=== PATIENT | male | born 1945 | race Caucasian/White ===

== ENCOUNTER → 2017-01-13 | Outpatient (CLI) | payer OTHER ==
[2015-01-04 10:04] VITALS: BP 148/78
[2017-01-13 10:20] LABS: BASOPHILS # (AUTO) 0.1 X10^3/uL (0.0-0.1); EOSINOPHILS # (AUTO) 0.4 x10^3/uL (0.0-0.2); HEMATOCRIT 42.3 % (42.0-54.0); HEMOGLOBIN 14.1 g/dL (13.5-18.0); LYMPHOCYTES # (AUTO) 1.3 X10^3/uL (1.3-2.9); MEAN CORPUSCULAR HEMOGLOBIN 25.3 pg (27.0-34.0); MEAN CORPUSCULAR HGB CONC 33.3 g/dL (33.0-35.0); MEAN CORPUSCULAR VOLUME 76.1 fL (80.0-100.0); MEAN PLATELET VOLUME 8.6 fL (7.4-11.0); MONOCYTES # (AUTO) 0.4 x10^3/uL (0.3-0.8); MONOCYTES % (AUTO) 6.4 % (0.0-13.0); NEUTROPHILS # (AUTO) 4.4 x10^3/uL (2.2-4.8); NEUTROPHILS % (AUTO) 66.6 % (42.0-75.0); PLATELET COUNT 166 X10^3/uL (150.0-450.0); RED BLOOD COUNT 5.55 X10^6/uL (4.7-6.0); RED CELL DISTRIBUTION WIDTH 14.3 % (11.6-16.5); WHITE BLOOD COUNT 6.6 X10^3/uL (3.6-10.0)
[2017-01-13 10:27] LABS: CREATININE,URINE 127.01 mg/dL (40-278); MICROALBUMIN,URINE 15.5 mg/L
[2017-01-13 10:33] LABS: HEMOGLOBIN A1C 7.8 % (4.5-6.2)
[2017-01-13 10:35] LABS: HYPOCHROMASIA SLIGHT; PLATELET MORPHOLOGY COMMENT NORMAL (NORMAL)
[2017-01-13 10:47] LABS: ALANINE AMINOTRANSFERASE 40 Units/L (12-78); ALBUMIN 3.9 g/dL (3.4-5.0); ALKALINE PHOSPHATASE 61 Units/L (46-116); ASPARTATE AMINO TRANSFERASE 26 Units/L (15-37); BLOOD UREA NITROGEN 20 mg/dL (7-18); CALCIUM 8.9 mg/dL (8.5-10.1); CARBON DIOXIDE 25.9 mmol/L (21-32); CHLORIDE 103 mmol/L (98-107); CHOL/HDL RATIO 2.5 (0.0-5.0); CHOLESTEROL 107 mg/dL (0-200); COR NA(FOR HYPERGLY) 143 mmol/L (136-145); GLUCOSE 182 mg/dL (65-99); HDL CHOLESTEROL 42 mg/dL (40-60); SODIUM 141 mmol/L (136-145); TOTAL PROTEIN 7.8 g/dL (6.4-8.2); TRIGLYCERIDES 124 mg/dL (0-150); URIC ACID 4.4 mg/dL (3.5-7.2); eGFR BLACK RACES > 60 (>60); eGFR NON BLACK RACES > 60 (>60)
[2017-01-13 12:08] LABS: TOTAL PSA 3.74 ng/mL (0.13-4.0)
== END ==
LOC: LAB 09:48
PROVIDERS: ATTEND Nurse Practitioner Family
DX: E11.9 Type 2 diabetes mellitus without complications (principal); E78.4 Other hyperlipidemia; M10.9 Gout, unspecified; Z87.898 Personal history of other specified conditions; R97.20 Elevated prostate specific antigen [PSA]
CPT/HCPCS: 36415; 80053; 80061; 82043; 83036; 84153; 84550; 85025

== ENCOUNTER → 2017-02-13 | Outpatient (CLI) | payer OTHER ==
[2015-01-04 10:04] VITALS: BP 148/78
== END ==
LOC: LAB 07:53
PROVIDERS: ATTEND Internal Medicine Gastroenterology
DX: K64.0 First degree hemorrhoids (principal); Z86.010 Personal history of colon polyps
CPT/HCPCS: 82270

== ENCOUNTER → 2017-08-27 | Outpatient (CLI) | payer OTHER ==
[2015-01-04 10:04] VITALS: BP 148/78
[2017-08-27 12:06] LABS: BASOPHILS % (AUTO) 0.9 % (0.2-1.0); EOSINOPHILS # (AUTO) 0.2 x10^3/uL (0.0-0.2); EOSINOPHILS % (AUTO) 4.1 % (0.9-2.9); HEMOGLOBIN 14.8 g/dL (13.5-18.0); LYMPHOCYTES # (AUTO) 1.2 X10^3/uL (1.3-2.9); LYMPHOCYTES % (AUTO) 24.8 % (21.0-51.0); MEAN CORPUSCULAR HEMOGLOBIN 25.5 pg (27.0-34.0); MEAN CORPUSCULAR HGB CONC 33.7 g/dL (33.0-35.0); MEAN CORPUSCULAR VOLUME 75.5 fL (80.0-100.0); MEAN PLATELET VOLUME 8.4 fL (7.4-11.0); MONOCYTES # (AUTO) 0.5 x10^3/uL (0.3-0.8); MONOCYTES % (AUTO) 9.5 % (0.0-13.0); NEUTROPHILS % (AUTO) 60.7 % (42.0-75.0); PLATELET COUNT 156 X10^3/uL (150.0-450.0); RED BLOOD COUNT 5.83 X10^6/uL (4.7-6.0); RED CELL DISTRIBUTION WIDTH 14.3 % (11.6-16.5); WHITE BLOOD COUNT 4.9 X10^3/uL (3.6-10.0)
[2017-08-27 12:16] LABS: ALANINE AMINOTRANSFERASE 73 Units/L (12-78); ALBUMIN 3.9 g/dL (3.4-5.0); ALKALINE PHOSPHATASE 66 Units/L (46-116); ASPARTATE AMINO TRANSFERASE 73 Units/L (15-37); BLOOD UREA NITROGEN 20 mg/dL (7-18); CALCIUM 9.4 mg/dL (8.5-10.1); CARBON DIOXIDE 24.9 mmol/L (21-32); CHLORIDE 105 mmol/L (98-107); CHOL/HDL RATIO 4.7 (0.0-5.0); CHOLESTEROL 192 mg/dL (0-200); COR NA(FOR HYPERGLY) 141 mmol/L (136-145); CREATININE 0.92 mg/dL (0.70-1.30); HDL CHOLESTEROL 41 mg/dL (40-60); SODIUM 139 mmol/L (136-145); TOTAL PROTEIN 7.6 g/dL (6.4-8.2); TRIGLYCERIDES 407 mg/dL (0-150); URIC ACID 6.2 mg/dL (3.5-7.2); eGFR BLACK RACES > 60 (>60); eGFR NON BLACK RACES > 60 (>60)
[2017-08-27 12:21] LABS: PLATELET MORPHOLOGY COMMENT NORMAL (NORMAL)
[2017-08-27 12:23] LABS: HEMOGLOBIN A1C 10.2 % (4.5-6.2)
[2017-08-27 12:27] LABS: CREATININE,URINE 116.91 mg/dL (40-278); MICROALBUMIN,URINE 24.6 mg/L
[2017-08-27 12:28] LABS: TOTAL PSA 4.12 ng/mL (0.13-4.0)
[2017-08-27 12:46] LABS: ERYTHROCYTE SEDIMENTATION RATE 2 MM/HOUR (0-15)
== END ==
LOC: LAB 11:20
PROVIDERS: ATTEND Nurse Practitioner Family
DX: E79.0 Hyperuricemia without signs of inflammatory arthritis and tophaceous disease (principal); E11.9 Type 2 diabetes mellitus without complications; I10 Essential (primary) hypertension; Z87.898 Personal history of other specified conditions; R97.20 Elevated prostate specific antigen [PSA]
CPT/HCPCS: 36415; 80053; 80061; 82043; 83036; 84153; 84550; 85025; 85652; 86140

== ENCOUNTER → 2017-09-01 | Outpatient (CLI) | payer OTHER ==
[2015-01-04 10:04] VITALS: BP 148/78
== END ==
LOC: LAB 08:20
PROVIDERS: ATTEND Nurse Practitioner Family
DX: E87.5 Hyperkalemia (principal)
CPT/HCPCS: 36415; 84132

== ENCOUNTER → 2017-09-10 | Outpatient (CLI) | payer OTHER ==
[2015-01-04 10:04] VITALS: BP 148/78
[2017-09-10 09:47] LABS: ALANINE AMINOTRANSFERASE 57 Units/L (12-78); ASPARTATE AMINO TRANSFERASE 31 Units/L (15-37)
== END ==
LOC: LAB 09:19
PROVIDERS: ATTEND Nurse Practitioner Family
DX: R74.0 Nonspecific elevation of levels of transaminase and lactic acid dehydrogenase [LDH] (principal)
CPT/HCPCS: 36415; 84450; 84460

== ENCOUNTER 2023-05-04 11:14 | Inpatient (IN) ==
[~2023-05-04 11:14] MED LIST: SUPRANE ONE
--- NOTE | 2023-05-04 11:25 | EKG ---
Test Reason : short of breath Blood Pressure : */* mmHG Vent. Rate : 116 BPM Atrial Rate : 116 BPM P-R Int : 156 ms QRS Dur : 86 ms QT Int : 310 ms P-R-T Axes : 29 9 62 degrees QTc Int : 430 ms Sinus tachycardia Possible Left atrial enlargement Possible Anterior infarct , age undetermined Abnormal ECG No previous ECGs available Confirmed by Lennox Martin ([id number]) on 05/05/2023 8:03:46 AM Referred By: Confirmed By: Lennox Martin
--- NOTE | 2023-05-04 11:31 | DR.GENAD ---
HPI Time Seen Time Seen by Provider: 05/04/23 11:30 HPI Comment HPI Comment: Patient is 77yr old male in er via ems with fever, rapid heart rate, right upper quadrant abdominal pain, weakness and sob. He was in this er 2days ago with right upper quadrant abdominal pain. Ct abdomen and pelvis was done with no acute findings. He saw pcp this morning and sent to er for further management. He is still having abdominal pain. He is having shaking chills. Denies dysuria, hematuria, vomiting, diarrhea or vomiting. He received one liter of normal saline prior to arrival to er. Complaint/Symptoms Chief Complaint Doctors Comments: Fever, hypotension, sob and rapid heart rate. PMH PMH Past Medical History: Diabetes, Dyslipidemia, GERD and Hypertension Past Surgical History: Yes Surgical History: Other Family History Family Medical History: Hypertension Social History Do you use any recreational Drugs:: No ROS Review of Systems Constitutional: Chills, Fever, Weakness, Fatigue and Loss of Appetite Eyes: No Symptoms Reported; negative Blurred Vision ENTM: No Symptoms Reported; negative Pulling on Ears or Nose Pain Respiratoy: Moist Cough and Short of Breath; negative Wheezing Cardiovascular: Palpitations; negative Chest Pain or Edema Gastrointestinal/Abdominal: Abdominal Pain; negative Diarrhea or Vomiting Genitourinary: No Symptoms Reported; negative Dysuria or Hematuria Neurological: Weakness; negative Headache or Dizziness Musculoskeletal: Muscle Pain Integumentary: Dryness Hematologic/Lymphatic: Easy Bruising Endocrine: Decreased Appetite; negative Increased Thirst Psychiatric: No Symptoms Reported All Other Systems: Reviewed and Negative PE Vital Signs Vitals: Vital Signs Temperature 100.3 F Pulse Rate 91 Pulse Rate 90 Pulse Rate 88 Pulse Rate 91 Pulse Rate 93 Pulse Rate 88 Pulse Rate 88 Pulse Rate 88 Pulse Rate 87 Pulse Rate 87 Pulse Rate 82 Pulse Rate 86 Pulse Rate 87 Pulse Rate 88 Pulse Rate 88 Pulse Rate 88 Pulse Rate 90 Pulse Rate 90 Pulse Rate 98 Pulse Rate 94 Pulse Rate 95 Pulse Rate 101 Pulse Rate 102 Pulse Rate 109 Pulse Rate 109 Pulse Rate 109 Pulse Rate 111 Pulse Rate 110 Pulse Rate 116 Respiratory Rate 32 Respiratory Rate 29 Respiratory Rate 31 Respiratory Rate 27 Respiratory Rate 30 Respiratory Rate 32 Respiratory Rate 33 Respiratory Rate 35 Respiratory Rate 25 Respiratory Rate 33 Respiratory Rate 31 Respiratory Rate 30 Respiratory Rate 33 Respiratory Rate 37 Respiratory Rate 28 Respiratory Rate 35 Respiratory Rate 37 Respiratory Rate 34 Respiratory Rate 33 Respiratory Rate 39 Respiratory Rate 60 Respiratory Rate 37 Respiratory Rate 62 Respiratory Rate 68 Respiratory Rate 78 Respiratory Rate 35 Respiratory Rate 33 Respiratory Rate 38 Respiratory Rate 20 Blood Pressure 96/57 Blood Pressure 95/52 Blood Pressure 100/57 Blood Pressure 91/52 Blood Pressure 89/60 Blood Pressure 69/50 Blood Pressure 71/50 Blood Pressure 67/49 Blood Pressure 67/49 Blood Pressure 63/45 Blood Pressure 60/42 Blood Pressure 59/43 Blood Pressure 69/44 Blood Pressure 71/47 Blood Pressure 84/54 Blood Pressure 94/55 Blood Pressure 95/55 Blood Pressure 123/56 Blood Pressure 93/56 O2 Sat by Pulse Oximetry 93 O2 Sat by Pulse Oximetry 93 O2 Sat by Pulse Oximetry 93 O2 Sat by Pulse Oximetry 93 O2 Sat by Pulse Oximetry 93 O2 Sat by Pulse Oximetry 94 O2 Sat by Pulse Oximetry 94 O2 Sat by Pulse Oximetry 94 O2 Sat by Pulse Oximetry 94 O2 Sat by Pulse Oximetry 93 O2 Sat by Pulse Oximetry 93 O2 Sat by Pulse Oximetry 93 O2 Sat by Pulse Oximetry 92 O2 Sat by Pulse Oximetry 89 O2 Sat by Pulse Oximetry 89 O2 Sat by Pulse Oximetry 91 O2 Sat by Pulse Oximetry 94 O2 Sat by Pulse Oximetry 93 O2 Sat by Pulse Oximetry 93 O2 Sat by Pulse Oximetry 92 O2 Sat by Pulse Oximetry 91 O2 Sat by Pulse Oximetry 94 O2 Sat by Pulse Oximetry 93 O2 Sat by Pulse Oximetry 93 O2 Sat by Pulse Oximetry 93 O2 Sat by Pulse Oximetry 95 O2 Sat by Pulse Oximetry 94 General Limitations: No Limitations General Appearance: Alert and In Distress Head Head Exam: Normal Inspection Eyes Eye exam: Normal Appearance; negative Scleral Icterus or Conjunctival Injection ENT ENT Exam: Normal Exam, Normal Oropharynx, Normal External Ear Exam and TM's Normal Bilaterally External Ear Exam: Normal External Inspection; negative Mastoid Tenderness TM/Canal Exam: Bilateral: Normal Nose Exam: Normal Nose Exam Mouth Exam: Normal Inspection Throat Exam: Normal Inspection; negative Tonsillar Erythema, Tonsillomegaly or Tonsillar Exudate Neck Neck Exam: Normal Inspection and Trachea Midline; negative Tenderness Chest Chest Inspection: Symmetric Chest Wall Rise; negative Tenderness Respiratory Respiratory Exam: Respiratory Distress; negative Accessory Muscle Use or Chest W all Tenderness Respiratory Exam: Bilateral: Rhonchi Cardiovascular Cardiovascular Exam: Tachycardia; negative Systolic Murmur or Diastolic Murmur Abdominal Exam Abdominal Exam: Normal Bowel Sounds, Soft and Tenderness Abdominal Tenderness: RUQ and Moderate Extremities Extremities Exam: Normal Inspection and Normal Capillary Refill Back Back Exam: Normal Inspection; negative (R) CVA Tenderness or (L) CVA Tenderness Neurologic Neurological Exam: Alert and Oriented X3 Psychiatric Psychiatric Exam: Normal Affect and Anxious Skin Skin Exam: Dry MDM Additional Information Additional Information Obtained From: Old Records, Family and PCP Differential Diagnosis Differential Diagnosis: Sepsis with shock, acute renal failure, bandemia, hypotension, bacteremia. COURSE Treatment Treatment: See orders done while patient was in er. patient was septic and resuscitated and managed according to protocol. He was given normal saline 4 liters iv bolus, zosyn 3.375gms ivpb and vancomycin 1.2gms ivpb.He was placed on levophed for persistent hypotension. He was admitted to icu for further management. Consultation Consultation Comments: Discussed patient with dr. [place]. He will admit patient. Education/Counseling Education/Counseling: Patient and Family Educated On: Treatment and Diagnosis Critical Care Notes Total Time (mins): 60 Critical Diagnosis: Sepsis Critical Interventions: Patients condition and management discussed with family and patient. Was at patients bedside, explaining update of his condition and management. Answered questions. he was fluid resuscitated and placed on lephofed. ROR Labs Reviewed Laboratory Results Reviewed?: Yes 05/07/23 04:10 05/07/23 04:10 Laboratory: 05/04/23 11:45 Urine,Catheterized Urine Culture - Final 05/04/23 12:35 Blood Blood Culture - Preliminary 05/04/23 11:55 Blood Blood Culture - Final Escherichia Coli WBC 14.0 X10^3/uL (3.6-10.0) H 05/04/23 11:55 RBC 5.45 X10^6/uL (4.7-6.0) 05/04/23 11:55 Hgb 13.6 g/dL (13.5-18.0) 05/04/23 11:55 Hct 41.3 % (42.0-54.0) L 05/04/23 11:55 MCV 75.7 fL (80.0-100.0) L 05/04/23 11:55 MCH 24.9 pg (27.0-34.0) L 05/04/23 11:55 MCHC 32.9 g/dL (33.0-35.0) L 05/04/23 11:55 RDW 15.0 % (11.6-16.5) 05/04/23 11:55 Plt Count 127 X10^3/uL (150.0-450.0) L 05/04/23 11:55 Plt Count Comment Decreased (ADEQUATE) 05/04/23 11:55 MPV 8.4 fL (7.4-11.0) 05/04/23 11:55 Neut % (Auto) 96.2 % (42.0-75.0) H 05/04/23 11:55 Lymph % (Auto) 1.2 % (21.0-51.0) L 05/04/23 11:55 [place] % (Auto) 2.6 % (0.0-13.0) 05/04/23 11:55 Eos % (Auto) 0.0 % (0.9-2.9) L 05/04/23 11:55 Baso % (Auto) 0 % (0.2-1.0) L 05/04/23 11:55 Neut # (Auto) 13.5 x10^3/uL (2.2-4.8) H 05/04/23 11:55 Lymph # (Auto) 0.2 X10^3/uL (1.3-2.9) L 05/04/23 11:55 [place] # (Auto) 0.4 x10^3/uL (0.3-0.8) 05/04/23 11:55 Eos # (Auto) 0.0 x10^3/uL (0.0-0.2) 05/04/23 11:55 Baso # (Auto) 0.0 X10^3/uL (0.0-0.1) 05/04/23 11:55 Absolute Nucleated RBC 0.0 /100WBC 05/04/23 11:55 Total Counted 100 05/04/23 11:55 Neutrophils % (Manual) 75 % (39-76) 05/04/23 11:55 Band Neutrophils % 15 % (0-10) H 05/04/23 11:55 Lymphocytes % (Manual) 4 % (13-43) L 05/04/23 11:55 Monocytes % (Manual) 4 % (4-9) 05/04/23 11:55 Metamyelocytes % 2 05/04/23 11:55 Toxic Granulation Noted 05/04/23 11:55 Plt Morphology Comment Normal (NORMAL) 05/04/23 11:55 RBC Morphology Normal (NORMAL) 05/04/23 11:55 Sodium 132 mmol/L (136-145) L 05/04/23 11:55 Corrected Sodium 134 mmol/L (136-145) L 05/04/23 11:55 Potassium 3.3 mmol/L (3.5-5.1) L 05/04/23 11:55 Chloride 94 mmol/L (98-107) L 05/04/23 11:55 Carbon Dioxide 24.7 mmol/L (21-32) 05/04/23 11:55 BUN 47 mg/dL (7-18) H 05/04/23 11:55 Creatinine 2.11 mg/dL (0.70-1.30) H 05/04/23 11:55 Est GFR (MDRD) Af Amer 39 (>60) L 05/04/23 11:55 Est GFR (MDRD) Non-Af 33 (>60) L 05/04/23 11:55 Glucose 176 mg/dL (65-99) H 05/04/23 11:55 Lactic Acid 1.9 mmol/L (0.4-2.0) 05/04/23 15:53 Calcium 8.2 mg/dL (8.5-10.1) L 05/04/23 11:55 Corrected Calcium 9.1 mg/dL (8.5-10.1) 05/04/23 11:55 Total Bilirubin 0.70 mg/dL (0.2-1.0) 05/04/23 11:55 AST 45 Units/L (15-37) H 05/04/23 11:55 ALT 41 Units/L (12-78) 05/04/23 11:55 Alkaline Phosphatase 184 Units/L (46-116) H 05/04/23 11:55 Creatine Kinase 66 Units/L (39-308) 05/04/23 11:55 Troponin I High Sens 39.8 ng/L (4.0-60.0) 05/04/23 11:55 B-Natriuretic Peptide 312 pg/mL (0-79) H 05/04/23 11:55 Total Protein 7.1 g/dL (6.4-8.2) 05/04/23 11:55 Albumin 2.9 g/dL (3.4-5.0) L 05/04/23 11:55 Globulin 4.2 g/dL (2.5-4.5) 05/04/23 11:55 Albumin/Globulin Ratio 0.7 Ratio (1.1-2.1) L 05/04/23 11:55 Amylase 23 Units/L (25-115) L 05/04/23 11:55 Lipase 77 Units/L (73-393) 05/04/23 11:55 Specimen Type Catherized urine 05/04/23 11:45 Urine Color Yellow (YELLOW) 05/04/23 11:45 Urine Appearance Hazy (CLEAR) 05/04/23 11:45 Urine pH 5.0 (5.0 - 8.0) 05/04/23 11:45 Ur Specific [place] 1.015 (1.000-1.030) 05/04/23 11:45 Urine Protein 2+ (NEGATIVE) 05/04/23 11:45 Urine Glucose (UA) 4+ (NEGATIVE) 05/04/23 11:45 Urine Ketones 1+ (NEGATIVE) 05/04/23 11:45 Urine Blood 5+ (NEGATIVE) 05/04/23 11:45 Urine Nitrite Negative (NEGATIVE) 05/04/23 11:45 Urine Bilirubin Negative (NEGATIVE) 05/04/23 11:45 Urine Urobilinogen Normal (NORMAL) 05/04/23 11:45 Ur Leukocyte Esterase Negative (NEGATIVE) 05/04/23 11:45 Urine RBC 10-20 /HPF (0-3) A 05/04/23 11:45 Urine WBC 0-2 /HPF (0-5) 05/04/23 11:45 Ur Squamous Epith Cells Rare /HPF (NEGATIVE) 05/04/23 11:45 Amorphous Sediment 1+ /HPF (NEGATIVE) 05/04/23 11:45 Urine Bacteria Trace /HPF (NEGATIVE) 05/04/23 11:45 Granular Casts Few /LPF (NEGATIVE) 05/04/23 11:45 Ur Culture Indicated? Yes/culture set up 05/04/23 11:45 SARS-CoV-2 (PCR) Negative (NEGATIVE) 05/04/23 16:22 Influenza Type A (PCR) Negative (NEGATIVE) 05/04/23 16:22 Influenza Type B (PCR) Negative (NEGATIVE) 05/04/23 16:22 RSV (PCR) Negative (NEGATIVE) 05/04/23 16:22 XRAY XRAY Interpreted by: Radiologist (Reports noted.) EKG Rate: 116 [place]: Normal Rhythm: ST Block: None Hypertrophy: LAE ST: Ant and Infarct (Age undetermined.) Opioid Opioid Risk Tool Age (Wolfgang box if 16-45): No Total: 0 Total Score Risk Category: Low Risk Copyright: Bahena LR predicting aberrant behaviors Discharge Plan Diagnosis Discharge Problem: Cholecystitis, Bandemia Sepsis Qualifiers: Sepsis type: sepsis due to unspecified organism Sepsis acute organ dysfunction status: with acute organ dysfunction Severe sepsis acute organ dysfunction type: acute renal failure Acute renal failure type: unspecified Severe sepsis shock status: with septic shock Qualified Code(s): A41.9 - Sepsis, unspecified [facility] Acute renal failure Qualifiers: Acute renal failure type: unspecified Qualified Code(s): N17.9 - Acute kidney failure, unspecified Hypotension Qualifiers: Hypotension type: unspecified hypotension type Qualified Code(s): I95.9 - Hypotension, unspecified Discharge Plan Patient Disposition: ADMITTED INPATIENT Condition: Stable
[2023-05-04] MEDS ORDERED: NS 1,000 ML IV 1,000 ML IV ONE ×2 (11:46→14:34)
[2023-05-04] MEDS ORDERED: OFIRMEV IV 1000 MG VIAL 1,000 MG/100 ML VIAL IV ONE ×2 (12:15→12:16)
[2023-05-04 12:23] LABS: BASOPHILS % (AUTO) 0 % (0.2-1.0); HEMATOCRIT 41.3 % (42.0-54.0); HEMOGLOBIN 13.6 g/dL (13.5-18.0); LYMPHOCYTES # (AUTO) 0.2 X10^3/uL (1.3-2.9); LYMPHOCYTES % (AUTO) 1.2 % (21.0-51.0); MEAN CORPUSCULAR HEMOGLOBIN 24.9 pg (27.0-34.0); MEAN CORPUSCULAR HGB CONC 32.9 g/dL (33.0-35.0); MEAN CORPUSCULAR VOLUME 75.7 fL (80.0-100.0); MEAN PLATELET VOLUME 8.4 fL (7.4-11.0); MONOCYTES # (AUTO) 0.4 x10^3/uL (0.3-0.8); MONOCYTES % (AUTO) 2.6 % (0.0-13.0); NEUTROPHILS # (AUTO) 13.5 x10^3/uL (2.2-4.8); NEUTROPHILS % (AUTO) 96.2 % (42.0-75.0); PLATELET COUNT 127 X10^3/uL (150.0-450.0); RED BLOOD COUNT 5.45 X10^6/uL (4.7-6.0)
[2023-05-04 12:24] LABS: BILIRUBIN,URINE NEGATIVE (NEGATIVE); BLOOD/HEMOGLOBIN,URINE 5+ (NEGATIVE); GLUCOSE, URINE 4+ (NEGATIVE); KETONES,URINE 1+ (NEGATIVE); LEUKOCYTE ESTERASE ,URINE NEGATIVE (NEGATIVE); NITRITES,URINE NEGATIVE (NEGATIVE); PROTEIN,URINE 2+ (NEGATIVE); UROBILINOGEN,URINE NORMAL (NORMAL)
[2023-05-04] MEDS ORDERED: NS 1,000 ML IV 1,000 ML ONE ×3 (12:25→15:23)
[2023-05-04 12:29] LABS: APPEARANCE,URINE HAZY (CLEAR); COLOR,URINE YELLOW (YELLOW)
[2023-05-04 12:37] LABS: ALBUMIN 2.9 g/dL (3.4-5.0); CALCIUM 8.2 mg/dL (8.5-10.1); CARBON DIOXIDE 24.7 mmol/L (21-32); COR CA(FOR HYPOALB) 9.1 mg/dL (8.5-10.1); CREATININE 2.11 mg/dL (0.70-1.30); POTASSIUM 3.3 mmol/L (3.5-5.1); TOTAL PROTEIN 7.1 g/dL (6.4-8.2)
[2023-05-04 12:38] LABS: BACTERIA,URINE TRACE /HPF (NEGATIVE); SQUAMOUS EPITHELIAL CELL,UR RARE /HPF (NEGATIVE)
[2023-05-04 12:39] LABS: GRANULAR CASTS,URINE FEW /LPF (NEGATIVE)
[2023-05-04 12:56] LABS: BAND NEUTROPHILS % 15 % (0-10); METAMYELOCYTES % 2; PLATELET MORPHOLOGY COMMENT NORMAL (NORMAL)
[2023-05-04 12:57] LABS: TOXIC GRANULATION NOTED
[2023-05-04] MEDS ORDERED: ZOSYN VIAL 3.375 GRAMS 3.375 G in NS 100 ML IV 100 ML IV ONE (13:05)
[2023-05-04] MEDS ORDERED: NS 100 ML IV 100 ML ONE (13:07)
[2023-05-04] MEDS ORDERED: ZOSYN VIAL 3.375 GRAMS IV ONE (13:07)
[2023-05-04] MEDS ORDERED: LEVOPHED INJ (VIAL) ONE (13:47)
[2023-05-04] MEDS: LEVOPHED 8 MG/250 ML IV *PREMIX 8 MG/250 ML PLAST..BAG IV PRN (13:55)
[2023-05-04] MEDS: D5W 250 ML IV 250 ML IV ONE (13:55)
--- NOTE | 2023-05-04 14:23 | US ---
HISTORYRight upper quadrant abdomen pain.STUDYGALL BLADDERCOMPARISONCT abdomen pelvis from 05/02/2023.TECHNIQUERight upper quadrant ultrasound.FINDINGSLiver appears normal in echotexture and echogenicity. The right lobe of liver measures 18 cm and the left 10.2 cm. The portal and hepatic veins are patent with appropriate flow directionality. The hepatic artery is patient. Gallbladder wall is thickened at 5-6 mm. No cholelithiasis seen or positive Morgan sign recorded. There is mild biliary sludge. Common duct normal at 2 mm. Right kidney measures 12.4 x 5.8 x 6.2 cm. No obvious renal mass, stone, or hydronephrosis. Obscured IVC and pancreas.IMPRESSIONGallbladder wall thickening is nonspecific and can be seen or acute or chronic cholecystitis, cardiac dysfunction, and liver dysfunction. No cholelithiasis identified.Electronically signed by: Johan Beckford (May 04, 2023 14:22:51)
[2023-05-04] MEDS: NS 1,000 ML IV 1,000 ML IV SCH ×2 (15:29→16:10)
[2023-05-04] MEDS ORDERED: VANCOMYCIN IV *PREMIX 1.25 G/250 ML BAG 1.25 G/250 ML PIGGYBACK IV ONE (15:55)
--- NOTE | 2023-05-04 15:57 | RAD ---
HISTORYSOB, FEVER, HIGH HEART RATESTUDYCHEST x-ray, 1 VIEWCOMPARISONNoneFINDINGSThere is poor inspiration with crowding of lung markings. Heart is probably normal in size. No pneumothorax, focal infiltrate, or pleural effusion is seen.IMPRESSIONPoor inspiration with crowding of lung markings. No acute abnormality is suggested.Electronically signed by: Ciro Dumont (May 04, 2023 15:47:44)
[2023-05-04] MEDS ORDERED: VANCOMYCIN IV *PREMIX 1.25 G/250 ML BAG 1.25 G/250 ML PIGGYBACK IV SCH (16:00)
[2023-05-04] MEDS ORDERED: CONSULT PHARMACY - POTASSIUM & MAGNESIUM XX SCH (17:00)
[2023-05-04] MEDS ORDERED: MICRO K EXTEN CAP 10 MEQ PO SCH (17:00)
[2023-05-04] MEDS ORDERED: NovoLIN R (or HumuLIN R) SUBCUT PRN (22:06)
[2023-05-04] MEDS: NovoLIN R (or HumuLIN R) SUBCUT PRN (22:15)
[2023-05-05] MEDS: NS 1,000 ML IV 1,000 ML IV SCH ×4 (00:20→22:25)
[2023-05-05] MEDS ORDERED: OFIRMEV IV 1000 MG VIAL 1,000 MG/100 ML VIAL IV ONE (00:38)
[2023-05-05] MEDS: OFIRMEV IV 1000 MG VIAL 1,000 MG/100 ML VIAL IV PRN ×2 (00:45→17:43)
[2023-05-05 05:06] LABS: BASOPHILS % (AUTO) 0.1 % (0.2-1.0); EOSINOPHILS % (AUTO) 0.2 % (0.9-2.9); HEMOGLOBIN 12.9 g/dL (13.5-18.0); LYMPHOCYTES # (AUTO) 0.1 X10^3/uL (1.3-2.9); LYMPHOCYTES % (AUTO) 1.3 % (21.0-51.0); MEAN CORPUSCULAR HEMOGLOBIN 25.3 pg (27.0-34.0); MEAN CORPUSCULAR VOLUME 74.6 fL (80.0-100.0); MEAN PLATELET VOLUME 8.4 fL (7.4-11.0); MONOCYTES # (AUTO) 0.1 x10^3/uL (0.3-0.8); MONOCYTES % (AUTO) 0.8 % (0.0-13.0); NEUTROPHILS # (AUTO) 9.6 x10^3/uL (2.2-4.8); NEUTROPHILS % (AUTO) 97.6 % (42.0-75.0); PLATELET COUNT 102 X10^3/uL (150.0-450.0); RED CELL DISTRIBUTION WIDTH 15.1 % (11.6-16.5); WHITE BLOOD COUNT 9.8 X10^3/uL (3.6-10.0)
[2023-05-05 05:13] LABS: ALANINE AMINOTRANSFERASE 44 Units/L (12-78); ALBUMIN 2.2 g/dL (3.4-5.0); ALKALINE PHOSPHATASE 291 Units/L (46-116); ASPARTATE AMINO TRANSFERASE 51 Units/L (15-37); BLOOD UREA NITROGEN 47 mg/dL (7-18); CALCIUM 7.2 mg/dL (8.5-10.1); CARBON DIOXIDE 22.8 mmol/L (21-32); CHLORIDE 102 mmol/L (98-107); COR CA(FOR HYPOALB) 8.6 mg/dL (8.5-10.1); CREATININE 1.58 mg/dL (0.70-1.30); GLUCOSE 97 mg/dL (65-99); SODIUM 137 mmol/L (136-145); TOTAL PROTEIN 5.8 g/dL (6.4-8.2); eGFR NON BLACK RACES 46 (>60)
[2023-05-05 05:25] LABS: POTASSIUM 2.8 mmol/L (3.5-5.1)
[2023-05-05 05:35] LABS: BAND NEUTROPHILS % 7 % (0-10); PLATELET MORPHOLOGY COMMENT NORMAL (NORMAL)
[2023-05-05 05:36] LABS: MICROCYTOSIS SLIGHT
[2023-05-05 05:37] LABS: OVALOCYTES SLIGHT
[2023-05-05] MEDS ORDERED: MAG-OX TAB PO SCH (06:00)
[2023-05-05] MEDS ORDERED: CONSULT PHARMACY - POTASSIUM & MAGNESIUM XX SCH (06:00)
[2023-05-05] MEDS ORDERED: K-DUR TAB 20 MEQ PO SCH (06:00)
[2023-05-05] MEDS: LEVOPHED 8 MG/250 ML IV *PREMIX 8 MG/250 ML PLAST..BAG IV PRN (06:12)
[2023-05-05] MEDS: K-RIDER 10 MEQ/NS 100 ML 10 MEQ/100 ML BAG IV SCH ×6 (08:16→17:34)
[2023-05-05] MEDS: MAGNESIUM SULFATE 1 GRAM/100 mL PREMIX 1 G/100 ML BAG IV SCH ×2 (08:16→10:41)
[2023-05-05 08:41] LABS: ABG BASE EXCESS -6.9 mmol/L (-2.0-2.0)
--- NOTE | 2023-05-05 08:42 | RAD ---
HISTORYShortness of breathSTUDYChest AP portableCOMPARISONNoneFINDINGSHeart is enlarged. No congestive heart failure is noted. Lungs are hypoinflated but free of acute infiltrates. No pleural effusions are identified. Bony thorax is unremarkable.IMPRESSIONCardiomegaly without congestive heart failureLungs hypoinflated but clearElectronically signed by: BONNY WEIR (May 05, 2023 08:40:39)
[2023-05-05 08:43] LABS: ABG ALLEN TEST POS; ABG HCO3 14.9 mmol/L (22-26)
[2023-05-05] MEDS: LOVENOX INJ 40 MG SYR SC SCH (10:41)
--- NOTE | 2023-05-05 13:08 | DR.H&P ---
H&P History & Physical for Day of: H&P Date: 05/05/23 Chief Complaint Chief Complaint: This is a pleasant 77-year-old white male I was called about earlier in the day for what appears to be sepsis and he is having right upper quadrant pain as well. He went to the [facility] emergency department a few days ago and did a CT of his abdomen and pelvis and a gallbladder ultrasound which shows a thickened gallbladder wall with or possibly without cholecystitis. We have consulted general surgery to look at him and see what he thinks. In the meantime, he has been started on Levophed in the [facility] emergency department today for hypotension and tachycardia. He has responded appropriately to the medication and he is also been started on IV Zosyn along with IV vancomycin. He also recently had CT scan and there is concern about possible metastatic prostate cancer to his hip bone. Allergies Allergies Allergy/AdvReac Type Severity Reaction Status Date / Time No Known Drug Allergies Allergy Unknown Verified 05/04/23 09:47 Past Medical History Past Medical History: Diabetes, Dyslipidemia, GERD and Hypertension Past Surgical History Surgical History: Other Family History Family Medical History: Coronary Artery Disease and Hypertension Social History Does patient currently use any type of tobacco product: No Have you used tobacco products in the last 12 months: No Type of Tobacco Use: None Does any household member use tobacco: No Alcohol Use: Rarely Drug Use: None Medications Home Medications: Home Medications Medication Instructions Recorded Confirmed Type amlodipine 10 mg-valsartan 320 mg 1 tab PO QDAY 30 days #30 tabs 02/03/23 05/04/23 History tablet aspirin 81 mg chewable tablet 81 mg PO QDAY 02/03/23 05/04/23 History omeprazole 40 mg capsule,delayed 40 mg PO Q OTHER DAY 05/02/23 05/04/23 History release tamsulosin 0.4 mg capsule 0.4 mg PO QDAY 05/02/23 05/04/23 History Labs 05/05/23 04:15 05/05/23 04:15 Labs: 05/04/23 11:55 Blood Blood Culture - Preliminary 05/04/23 12:35 Blood Blood Culture - Preliminary 05/04/23 11:45 Urine,Catheterized Urine Culture - Preliminary Laboratory WBC 9.8 X10^3/uL (3.6-10.0) 05/05/23 04:15 RBC 5.10 X10^6/uL (4.7-6.0) 05/05/23 04:15 Hgb 12.9 g/dL (13.5-18.0) L 05/05/23 04:15 Hct 38.0 % (42.0-54.0) L 05/05/23 04:15 MCV 74.6 fL (80.0-100.0) L 05/05/23 04:15 MCH 25.3 pg (27.0-34.0) L 05/05/23 04:15 MCHC 34.0 g/dL (33.0-35.0) 05/05/23 04:15 RDW 15.1 % (11.6-16.5) 05/05/23 04:15 Plt Count 102 X10^3/uL (150.0-450.0) L 05/05/23 04:15 Plt Count Comment Decreased (ADEQUATE) 05/05/23 04:15 MPV 8.4 fL (7.4-11.0) 05/05/23 04:15 Neut % (Auto) 97.6 % (42.0-75.0) H 05/05/23 04:15 Lymph % (Auto) 1.3 % (21.0-51.0) L 05/05/23 04:15 [place] % (Auto) 0.8 % (0.0-13.0) 05/05/23 04:15 Eos % (Auto) 0.2 % (0.9-2.9) L 05/05/23 04:15 Baso % (Auto) 0.1 % (0.2-1.0) L 05/05/23 04:15 Neut # (Auto) 9.6 x10^3/uL (2.2-4.8) H 05/05/23 04:15 Lymph # (Auto) 0.1 X10^3/uL (1.3-2.9) L 05/05/23 04:15 [place] # (Auto) 0.1 x10^3/uL (0.3-0.8) L 05/05/23 04:15 Eos # (Auto) 0.0 x10^3/uL (0.0-0.2) 05/05/23 04:15 Baso # (Auto) 0.0 X10^3/uL (0.0-0.1) 05/05/23 04:15 Absolute Nucleated RBC 0.1 /100WBC 05/05/23 04:15 Total Counted 100 05/05/23 04:15 Neutrophils % (Manual) 89 % (39-76) H 05/05/23 04:15 Band Neutrophils % 7 % (0-10) 05/05/23 04:15 Lymphocytes % (Manual) 4 % (13-43) L 05/05/23 04:15 Monocytes % (Manual) 4 % (4-9) 05/04/23 11:55 Metamyelocytes % 2 05/04/23 11:55 Toxic Granulation Noted 05/04/23 11:55 Plt Morphology Comment Normal (NORMAL) 05/05/23 04:15 RBC Morphology Abnormal (NORMAL) 05/05/23 04:15 Microcytosis Slight A 05/05/23 04:15 Ovalocytes Slight A 05/05/23 04:15 PT 16.9 SECONDS (11.8-14.3) 05/04/23 17:25 INR Target Range - 05/04/23 17:25 INR 1.40 (0.8-1.3) H 05/04/23 17:25 APTT 41.3 SECONDS (22.9-36.5) H 05/04/23 17:25 PTT Comment - 05/04/23 17:25 Fibrinogen 869 mg/dL (239-489) H 05/04/23 17:25 Sample Site Rr 05/05/23 08:36 ABG pH 7.460 (7.35-7.45) H 05/05/23 08:36 ABG pCO2 21.0 mmHg (35.0-45.0) L 05/05/23 08:36 ABG pO2 93.0 mmHg (80.0-100.0) 05/05/23 08:36 ABG HCO3 14.9 mmol/L (22-26) L* 05/05/23 08:36 ABG O2 Saturation 98.0 % (90-100) 05/05/23 08:36 ABG Base Excess -6.9 mmol/L (-2.0-2.0) L 05/05/23 08:36 Trevon Test Pos 05/05/23 08:36 A-a Gradient 130.0 mmHg 05/05/23 08:36 FiO2 35.0 05/05/23 08:36 Blood Gas Comments Pt luana well cdn 05/05/23 08:36 Sodium 137 mmol/L (136-145) 05/05/23 04:15 Corrected Sodium TNP 05/05/23 04:15 Potassium 2.8 mmol/L (3.5-5.1) L* 05/05/23 04:15 Chloride 102 mmol/L (98-107) 05/05/23 04:15 Carbon Dioxide 22.8 mmol/L (21-32) 05/05/23 04:15 BUN 47 mg/dL (7-18) H 05/05/23 04:15 Creatinine 1.58 mg/dL (0.70-1.30) H 05/05/23 04:15 Est GFR (MDRD) Af Amer 55 (>60) L 05/05/23 04:15 Est GFR (MDRD) Non-Af 46 (>60) L 05/05/23 04:15 Glucose 97 mg/dL (65-99) 05/05/23 04:15 POC Glucose (mg/dL) 135 mg/dL (65-99) H 05/05/23 11:39 Lactic Acid 1.9 mmol/L (0.4-2.0) 05/04/23 15:53 Calcium 7.2 mg/dL (8.5-10.1) L 05/05/23 04:15 Corrected Calcium 8.6 mg/dL (8.5-10.1) 05/05/23 04:15 Magnesium 1.6 mg/dL (2.0-2.9) L 05/05/23 04:15 Total Bilirubin 0.50 mg/dL (0.2-1.0) 05/05/23 04:15 AST 51 Units/L (15-37) H 05/05/23 04:15 ALT 44 Units/L (12-78) 05/05/23 04:15 Alkaline Phosphatase 291 Units/L (46-116) H 05/05/23 04:15 Creatine Kinase 66 Units/L (39-308) 05/04/23 11:55 Troponin I High Sens 39.8 ng/L (4.0-60.0) 05/04/23 11:55 B-Natriuretic Peptide 159 pg/mL (0-79) H 05/05/23 04:15 Total Protein 5.8 g/dL (6.4-8.2) L 05/05/23 04:15 Albumin 2.2 g/dL (3.4-5.0) L 05/05/23 04:15 Globulin 3.6 g/dL (2.5-4.5) 05/05/23 04:15 Albumin/Globulin Ratio 0.6 Ratio (1.1-2.1) L 05/05/23 04:15 Amylase 23 Units/L (25-115) L 05/04/23 11:55 Lipase 77 Units/L (73-393) 05/04/23 11:55 Specimen Type Catherized urine 05/04/23 11:45 Urine Color Yellow (YELLOW) 05/04/23 11:45 Urine Appearance Hazy (CLEAR) 05/04/23 11:45 Urine pH 5.0 (5.0 - 8.0) 05/04/23 11:45 Ur Specific [place] 1.015 (1.000-1.030) 05/04/23 11:45 Urine Protein 2+ (NEGATIVE) 05/04/23 11:45 Urine Glucose (UA) 4+ (NEGATIVE) 05/04/23 11:45 Urine Ketones 1+ (NEGATIVE) 05/04/23 11:45 Urine Blood 5+ (NEGATIVE) 05/04/23 11:45 Urine Nitrite Negative (NEGATIVE) 05/04/23 11:45 Urine Bilirubin Negative (NEGATIVE) 05/04/23 11:45 Urine Urobilinogen Normal (NORMAL) 05/04/23 11:45 Ur Leukocyte Esterase Negative (NEGATIVE) 05/04/23 11:45 Urine RBC 10-20 /HPF (0-3) A 05/04/23 11:45 Urine WBC 0-2 /HPF (0-5) 05/04/23 11:45 Ur Squamous Epith Cells Rare /HPF (NEGATIVE) 05/04/23 11:45 Amorphous Sediment 1+ /HPF (NEGATIVE) 05/04/23 11:45 Urine Bacteria Trace /HPF (NEGATIVE) 05/04/23 11:45 Granular Casts Few /LPF (NEGATIVE) 05/04/23 11:45 Ur Culture Indicated? Yes/culture set up 05/04/23 11:45 SARS-CoV-2 (PCR) Negative (NEGATIVE) 05/04/23 16:22 Influenza Type A (PCR) Negative (NEGATIVE) 05/04/23 16:22 Influenza Type B (PCR) Negative (NEGATIVE) 05/04/23 16:22 RSV (PCR) Negative (NEGATIVE) 05/04/23 16:22 Review of Systems Constitutional: Fever, Chills, Sweats, Weakness and Malaise Eyes: No Symptoms Reported ENT: No Symptoms Reported Respiratory: Cough and Shortness of Breath Cardiovascular: Orthopnea Gastrointestinal: Abdominal Pain Genitourinary: No Symptoms Reported Musculoskeletal: No Symptoms Reported Skin: No Symptoms Reported Neurological: No Symptoms Reported Physical Exam Vital Signs: Vital Signs Temperature 99.5 F Pulse Rate 92 Pulse Rate 89 Pulse Rate 95 Pulse Rate 95 Pulse Rate 97 Pulse Rate 110 Pulse Rate 102 Pulse Rate 112 Pulse Rate 105 Pulse Rate 111 Pulse Rate 107 Pulse Rate 105 Pulse Rate 102 Pulse Rate 104 Respiratory Rate 36 Respiratory Rate 31 Respiratory Rate 32 Respiratory Rate 35 Respiratory Rate 39 Respiratory Rate 38 Respiratory Rate 33 Respiratory Rate 41 Respiratory Rate 36 Respiratory Rate 37 Respiratory Rate 32 Respiratory Rate 37 Respiratory Rate 28 Respiratory Rate 30 Blood Pressure 115/63 Blood Pressure 108/60 Blood Pressure 117/63 Blood Pressure 111/64 Blood Pressure 114/70 Blood Pressure 104/69 Blood Pressure 109/64 Blood Pressure 121/75 Blood Pressure 124/81 Blood Pressure 124/81 Blood Pressure 117/72 Blood Pressure 97/64 Blood Pressure 108/58 Blood Pressure 125/68 O2 Sat by Pulse Oximetry 94 O2 Sat by Pulse Oximetry 93 O2 Sat by Pulse Oximetry 93 O2 Sat by Pulse Oximetry 98 O2 Sat by Pulse Oximetry 97 O2 Sat by Pulse Oximetry 94 O2 Sat by Pulse Oximetry 94 O2 Sat by Pulse Oximetry 95 O2 Sat by Pulse Oximetry 95 O2 Sat by Pulse Oximetry 92 O2 Sat by Pulse Oximetry 94 O2 Sat by Pulse Oximetry 92 O2 Sat by Pulse Oximetry 93 O2 Sat by Pulse Oximetry 93 Oriented: Normal, Time, Person and Place Eyes: Normal Ear: Normal Nose: Normal Throat: Normal Respiratory: Clear Throughout Cardiovascular: Normal : Normal Auscultation: Bowel Sounds: Normal Palpation: Normal Tenderness: RUQ Skin: Normal Musculoskeletal: Normal Psychiatric: Normal Mood Description: Calm Affect: Normal Speech Pattern: Clear and Appropriate Assessment/Plan (1) Acute renal failure: Status: Acute Plan: IV hydration. (2) Cholecystitis: Status: Acute Plan: Following up with general surgery consultation (3) Hypotension: Status: Acute Plan: Continue Levophed but wean off as tolerated. (4) Tachycardia: Status: None Plan: IV hydration to help bring her blood pressure. (5) Enlarged prostate: Status: Acute Plan: Check MRI of abdomen pelvis (6) Insulin-requiring or dependent type II diabetes mellitus: Status: Acute Plan: Slight scale regular insulin per protocol. (7) Benign prostatic hyperplasia: Qualifiers: Lower urinary tract symptom detail: nocturia Status: None Plan: Check PSA in the morning. (8) Sepsis: Status: Acute Plan: Follow-up blood cultures, continue IV Zosyn and continue IV vancomycin.
[2023-05-05] MEDS ORDERED: NS 100 ML IV 100 ML ONE (14:09)
[2023-05-05] MEDS ORDERED: MULTIHANCE INJ VIAL ONE (14:09)
[2023-05-05] MEDS ORDERED: VANCOMYCIN IV *PREMIX 1.25 G/250 ML BAG 1.25 G/250 ML PIGGYBACK IV SCH (16:00)
[2023-05-05] MEDS: NovoLIN R (or HumuLIN R) SUBCUT PRN (16:51)
[2023-05-05] MEDS ORDERED: RESTORIL CAP 30 MG PO PRN (17:15)
[2023-05-05] MEDS ORDERED: K-RIDER 10 MEQ/NS 100 ML 10 MEQ/100 ML BAG IV ONE (17:29)
[2023-05-05] MEDS: ULTRAM PO PRN (19:45)
[2023-05-05] MEDS ORDERED: SNACK - Diabetic Appropriate PO SCH (20:00)
[2023-05-05] MEDS: SNACK - Diabetic Appropriate PO SCH (20:10)
[2023-05-05] MEDS: RESTORIL CAP 15 MG PO PRN (20:29)
[2023-05-06 04:45] LABS: ABG ALLEN TEST POS; ABG HCO3 19.5 mmol/L (22-26)
[2023-05-06 05:14] LABS: BASOPHILS % (AUTO) 0.1 % (0.2-1.0); EOSINOPHILS # (AUTO) 0.1 x10^3/uL (0.0-0.2); HEMATOCRIT 35.2 % (42.0-54.0); HEMOGLOBIN 11.8 g/dL (13.5-18.0); LYMPHOCYTES # (AUTO) 0.4 X10^3/uL (1.3-2.9); LYMPHOCYTES % (AUTO) 3.2 % (21.0-51.0); MEAN CORPUSCULAR HGB CONC 33.6 g/dL (33.0-35.0); MEAN CORPUSCULAR VOLUME 74.4 fL (80.0-100.0); MEAN PLATELET VOLUME 8.7 fL (7.4-11.0); MONOCYTES # (AUTO) 0.7 x10^3/uL (0.3-0.8); MONOCYTES % (AUTO) 5.4 % (0.0-13.0); NEUTROPHILS % (AUTO) 90.3 % (42.0-75.0); PLATELET COUNT 60 X10^3/uL (150.0-450.0); RED BLOOD COUNT 4.73 X10^6/uL (4.7-6.0); RED CELL DISTRIBUTION WIDTH 15.7 % (11.6-16.5); WHITE BLOOD COUNT 12.2 X10^3/uL (3.6-10.0)
[2023-05-06 05:19] LABS: ALANINE AMINOTRANSFERASE 38 Units/L (12-78); ALBUMIN 1.8 g/dL (3.4-5.0); ALKALINE PHOSPHATASE 121 Units/L (46-116); ASPARTATE AMINO TRANSFERASE 33 Units/L (15-37); BLOOD UREA NITROGEN 32 mg/dL (7-18); CALCIUM 7.2 mg/dL (8.5-10.1); CARBON DIOXIDE 22.5 mmol/L (21-32); CHLORIDE 106 mmol/L (98-107); COR NA(FOR HYPERGLY) 139 mmol/L (136-145); GLUCOSE 129 mg/dL (65-99); POTASSIUM 3.4 mmol/L (3.5-5.1); SODIUM 138 mmol/L (136-145); TOTAL PROTEIN 5.4 g/dL (6.4-8.2); eGFR NON BLACK RACES > 60 (>60)
[2023-05-06 05:25] LABS: TOTAL PSA 38.28 ng/mL (0.13-4.0)
[2023-05-06 05:56] LABS: BAND NEUTROPHILS % 3 % (0-10); PLATELET MORPHOLOGY COMMENT NORMAL (NORMAL)
[2023-05-06 05:57] LABS: MICROCYTOSIS SLIGHT; OVALOCYTES SLIGHT
[2023-05-06] MEDS ORDERED: CONSULT PHARMACY - POTASSIUM & MAGNESIUM XX SCH (06:00)
--- NOTE | 2023-05-06 07:44 | PCM.PROG ---
Progress Note Progress Note for Day of Date of Exam: 05/05/23 Subjective Subjective: Patient is alert and awake and is feeling a little better this morning. They are weaning him down on the Levophed however his respirations are up in the 30s this point. Chest x-ray showed no acute processes going on. He is currently on a B mass with satting in the 90s. Will continue to wean down his O2 as tolerated and Levophed as tolerated by his blood pressure. Continue IV Zosyn and vancomycin. General surgeon has ordered a HIDA scan for his gallbladder however he is not currently stable enough to go to [facility] in [place] to have it done. Will see how he does next day his CV stable enough to have it done. In the meantime we will plan to order an MRI of his abdomen and pelvis to also look at what looks like to be metastatic prostate cancer. Past Medical Family Social History Allergies: Allergies No Known Drug Allergies Allergy (Unknown, Verified 05/04/23 09:47) Onset Date: 09/10/2012 Review of Systems ROS: No change since H&P Vital Signs and I&O's Vital Signs: Vital Signs Temperature 98.4 F Pulse Rate 83 Pulse Rate 80 Pulse Rate 85 Pulse Rate 86 Pulse Rate 87 Pulse Rate 90 Pulse Rate 93 Respiratory Rate 22 Respiratory Rate 29 Respiratory Rate 19 Respiratory Rate 18 Respiratory Rate 20 Respiratory Rate 29 Respiratory Rate 24 Blood Pressure 107/60 Blood Pressure 115/62 Blood Pressure 111/64 Blood Pressure 107/59 Blood Pressure 109/61 Blood Pressure 111/60 Blood Pressure 113/63 O2 Sat by Pulse Oximetry 95 O2 Sat by Pulse Oximetry 94 O2 Sat by Pulse Oximetry 95 O2 Sat by Pulse Oximetry 95 O2 Sat by Pulse Oximetry 95 O2 Sat by Pulse Oximetry 95 O2 Sat by Pulse Oximetry 93 Intake and Output: Intake & Output 05/03/23 05/04/23 05/05/23 05/06/23 11:59 11:59 11:59 11:59 Intake Total 5706 / 5937 4611 / 4611 Output Total 2099 / 2099 2950 / 2950 Balance 3606 / 3837 1661 / 1661 Physical Exam Oriented: Normal, Time, Person and Place Eyes: Normal Ear: Normal Nose: Normal Throat: Normal Respiratory: Normal Cardiovascular: Normal : Normal Auscultation: Bowel Sounds: Normal Tenderness: RUQ Skin: Normal Musculoskeletal: Normal Psychiatric: Normal Mood Description: Calm Affect: Normal Speech Pattern: Clear and Appropriate Laboratory and Diagnostics 05/06/23 04:10 05/06/23 04:10 Labs: 05/04/23 11:45 Urine,Catheterized Urine Culture - Final 05/04/23 12:35 Blood Blood Culture - Preliminary 05/04/23 11:55 Blood Blood Culture - Final Escherichia Coli Laboratory WBC 12.2 X10^3/uL (3.6-10.0) H 05/06/23 04:10 RBC 4.73 X10^6/uL (4.7-6.0) 05/06/23 04:10 Hgb 11.8 g/dL (13.5-18.0) L 05/06/23 04:10 Hct 35.2 % (42.0-54.0) L 05/06/23 04:10 MCV 74.4 fL (80.0-100.0) L 05/06/23 04:10 MCH 25.0 pg (27.0-34.0) L 05/06/23 04:10 MCHC 33.6 g/dL (33.0-35.0) 05/06/23 04:10 RDW 15.7 % (11.6-16.5) 05/06/23 04:10 Plt Count 60 X10^3/uL (150.0-450.0) L 05/06/23 04:10 Plt Count Comment Decreased (ADEQUATE) 05/06/23 04:10 MPV 8.7 fL (7.4-11.0) 05/06/23 04:10 Neut % (Auto) 90.3 % (42.0-75.0) H 05/06/23 04:10 Lymph % (Auto) 3.2 % (21.0-51.0) L 05/06/23 04:10 Mineral % (Auto) 5.4 % (0.0-13.0) 05/06/23 04:10 Eos % (Auto) 1.0 % (0.9-2.9) 05/06/23 04:10 Baso % (Auto) 0.1 % (0.2-1.0) L 05/06/23 04:10 Neut # (Auto) 11.0 x10^3/uL (2.2-4.8) H 05/06/23 04:10 Lymph # (Auto) 0.4 X10^3/uL (1.3-2.9) L 05/06/23 04:10 Mineral # (Auto) 0.7 x10^3/uL (0.3-0.8) 05/06/23 04:10 Eos # (Auto) 0.1 x10^3/uL (0.0-0.2) 05/06/23 04:10 Baso # (Auto) 0.0 X10^3/uL (0.0-0.1) 05/06/23 04:10 Absolute Nucleated RBC 0.1 /100WBC 05/06/23 04:10 Total Counted 100 05/06/23 04:10 Neutrophils % (Manual) 85 % (39-76) H 05/06/23 04:10 Band Neutrophils % 3 % (0-10) 05/06/23 04:10 Lymphocytes % (Manual) 5 % (13-43) L 05/06/23 04:10 Monocytes % (Manual) 7 % (4-9) 05/06/23 04:10 Metamyelocytes % 2 05/04/23 11:55 Toxic Granulation Noted 05/04/23 11:55 Plt Morphology Comment Normal (NORMAL) 05/06/23 04:10 RBC Morphology Abnormal (NORMAL) 05/06/23 04:10 Microcytosis Slight A 05/06/23 04:10 Ovalocytes Slight A 05/06/23 04:10 PT 16.9 SECONDS (11.8-14.3) 05/04/23 17:25 INR Target Range - 05/04/23 17:25 INR 1.40 (0.8-1.3) H 05/04/23 17:25 APTT 41.3 SECONDS (22.9-36.5) H 05/04/23 17:25 PTT Comment - 05/04/23 17:25 Fibrinogen 869 mg/dL (239-489) H 05/04/23 17:25 Sample Site Lr 05/06/23 04:39 ABG pH 7.420 (7.35-7.45) 05/06/23 04:39 ABG pCO2 30.0 mmHg (35.0-45.0) L 05/06/23 04:39 ABG pO2 77.0 mmHg (80.0-100.0) L 05/06/23 04:39 ABG HCO3 19.5 mmol/L (22-26) L 05/06/23 04:39 ABG O2 Saturation 95.0 % (90-100) 05/06/23 04:39 ABG Base Excess -4.0 mmol/L (-2.0-2.0) L 05/06/23 04:39 Trevon Test Pos 05/06/23 04:39 A-a Gradient 114.0 mmHg 05/06/23 04:39 FiO2 32.0 05/06/23 04:39 Blood Gas Comments Sagar well ae 05/06/23 04:39 Sodium 138 mmol/L (136-145) 05/06/23 04:10 Corrected Sodium 139 mmol/L (136-145) 05/06/23 04:10 Potassium 3.4 mmol/L (3.5-5.1) L 05/06/23 04:10 Chloride 106 mmol/L (98-107) 05/06/23 04:10 Carbon Dioxide 22.5 mmol/L (21-32) 05/06/23 04:10 BUN 32 mg/dL (7-18) H 05/06/23 04:10 Creatinine 0.90 mg/dL (0.70-1.30) 05/06/23 04:10 Est GFR (MDRD) Af Amer > 60 (>60) 05/06/23 04:10 Est GFR (MDRD) Non-Af > 60 (>60) 05/06/23 04:10 Glucose 129 mg/dL (65-99) H 05/06/23 04:10 POC Glucose (mg/dL) 93 mg/dL (65-99) 05/06/23 05:38 Lactic Acid 1.9 mmol/L (0.4-2.0) 05/04/23 15:53 Calcium 7.2 mg/dL (8.5-10.1) L 05/06/23 04:10 Corrected Calcium 9.0 mg/dL (8.5-10.1) 05/06/23 04:10 Magnesium 2.4 mg/dL (2.0-2.9) 05/06/23 04:10 Total Bilirubin 0.40 mg/dL (0.2-1.0) 05/06/23 04:10 AST 33 Units/L (15-37) 05/06/23 04:10 ALT 38 Units/L (12-78) 05/06/23 04:10 Alkaline Phosphatase 121 Units/L (46-116) H 05/06/23 04:10 Creatine Kinase 66 Units/L (39-308) 05/04/23 11:55 Troponin I High Sens 39.8 ng/L (4.0-60.0) 05/04/23 11:55 B-Natriuretic Peptide 169 pg/mL (0-79) H 05/06/23 04:10 Total Protein 5.4 g/dL (6.4-8.2) L 05/06/23 04:10 Albumin 1.8 g/dL (3.4-5.0) L 05/06/23 04:10 Globulin 3.6 g/dL (2.5-4.5) 05/06/23 04:10 Albumin/Globulin Ratio 0.5 Ratio (1.1-2.1) L 05/06/23 04:10 Amylase 23 Units/L (25-115) L 05/04/23 11:55 Lipase 77 Units/L (73-393) 05/04/23 11:55 Total PSA 38.28 ng/mL (0.13-4.0) H 05/06/23 04:10 Specimen Type Catherized urine 05/04/23 11:45 Urine Color Yellow (YELLOW) 05/04/23 11:45 Urine Appearance Hazy (CLEAR) 05/04/23 11:45 Urine pH 5.0 (5.0 - 8.0) 05/04/23 11:45 Ur Specific [place] 1.015 (1.000-1.030) 05/04/23 11:45 Urine Protein 2+ (NEGATIVE) 05/04/23 11:45 Urine Glucose (UA) 4+ (NEGATIVE) 05/04/23 11:45 Urine Ketones 1+ (NEGATIVE) 05/04/23 11:45 Urine Blood 5+ (NEGATIVE) 05/04/23 11:45 Urine Nitrite Negative (NEGATIVE) 05/04/23 11:45 Urine Bilirubin Negative (NEGATIVE) 05/04/23 11:45 Urine Urobilinogen Normal (NORMAL) 05/04/23 11:45 Ur Leukocyte Esterase Negative (NEGATIVE) 05/04/23 11:45 Urine RBC 10-20 /HPF (0-3) A 05/04/23 11:45 Urine WBC 0-2 /HPF (0-5) 05/04/23 11:45 Ur Squamous Epith Cells Rare /HPF (NEGATIVE) 05/04/23 11:45 Amorphous Sediment 1+ /HPF (NEGATIVE) 05/04/23 11:45 Urine Bacteria Trace /HPF (NEGATIVE) 05/04/23 11:45 Granular Casts Few /LPF (NEGATIVE) 05/04/23 11:45 Ur Culture Indicated? Yes/culture set up 05/04/23 11:45 SARS-CoV-2 (PCR) Negative (NEGATIVE) 05/04/23 16:22 Influenza Type A (PCR) Negative (NEGATIVE) 05/04/23 16:22 Influenza Type B (PCR) Negative (NEGATIVE) 05/04/23 16:22 RSV (PCR) Negative (NEGATIVE) 05/04/23 16:22 Plan (1) Acute renal failure: Status: Acute Narrative Support Text: Improved Plan: IV hydration. (2) Cholecystitis: Status: Acute Narrative Support Text: Plan on getting HIDA scan. Plan: Following up with general surgery consultation (3) Hypotension: Status: Acute Narrative Support Text: Improving. Plan: Continue Levophed but wean off as tolerated. (4) Tachycardia: Status: None Plan: IV hydration to help bring her blood pressure. (5) Enlarged prostate: Status: Acute Plan: Check MRI of abdomen pelvis (6) Insulin-requiring or dependent type II diabetes mellitus: Status: Acute Plan: Slight scale regular insulin per protocol. (7) Benign prostatic hyperplasia: Status: None Qualifiers: Lower urinary tract symptom detail: nocturia Plan: Check PSA in the morning. (8) Sepsis: Status: Acute Plan: Follow-up blood cultures, continue IV Zosyn and continue IV vancomycin.
[2023-05-06] MEDS: NS 1,000 ML IV 1,000 ML IV SCH ×3 (08:07→22:11)
[2023-05-06] MEDS ORDERED: K-RIDER 10 MEQ/NS 100 ML 10 MEQ/100 ML BAG IV SCH (09:00)
[2023-05-06] MEDS ORDERED: K-DUR TAB 20 MEQ PO SCH (09:00)
[2023-05-06] MEDS: FORTAZ or TAZICEF VIAL INJ 1 G in NS 100 ML IV 100 ML IV SCH ×3 (09:22→22:10)
[2023-05-06] MEDS: CIPRO IV 400 MG PREMIX* 400 MG/200 ML IV.SOLN. IV SCH ×2 (09:22→20:25)
--- NOTE | 2023-05-06 15:58 | MRI ---
PELVIS W W/O CONIndication: "Enlarged prostate"Technique: Multisequence, multiplanar MR images of the prostate were obtained with and without IV contrast.Comparison: None availableFindings: Several sequences are degraded by patient motion artifact.Accounting for this, the prostate gland is enlarged and measures 7.2 x 5.1 x 5.2 cm in transverse by AP by CC dimension. There is prominence and heterogeneous signal of the transitional zone of the prostate gland, compatible with changes of BPH.Accounting for limitations from motion artifact, no discrete T2 hypointense diffusion restricting or enhancing lesions within the transitional or peripheral zones of the prostate gland are identified to suggest primary prostate malignancy.The seminal vesicles are grossly within normal limits. The urinary bladder is partially collapsed around a Avalos catheter, limiting evaluation. There is distal colonic diverticulosis. There is no free fluid or definite pathologically enlarged lymph nodes within the imaged lower abdomen or pelvis.Impression:Prostatomegaly and changes of BPH of the transitional zone of the prostate gland.Otherwise, no discrete T2 hypointense diffusion restricting or enhancing lesions of the prostate gland to suggest primary prostate neoplasm, accounting for exam limitations.Of note, the only available history to me is "enlarged prostate." If not already performed, lab correlation with PSA levels is recommended. If PSA levels are elevated and continue to rise, consider nontargeted biopsy for further evaluation.Electronically signed by: MINERVA KING (May 06, 2023 15:57:23)
[2023-05-06] MEDS: SNACK - Diabetic Appropriate PO SCH (20:25)
[2023-05-06] MEDS: ULTRAM PO PRN (20:57)
[2023-05-06] MEDS: RESTORIL CAP 15 MG PO PRN (20:57)
[2023-05-07] MEDS: FORTAZ or TAZICEF VIAL INJ 1 G in NS 100 ML IV 100 ML IV SCH ×3 (05:00→21:22)
[2023-05-07 05:32] LABS: BASOPHILS % (AUTO) 0.2 % (0.2-1.0); EOSINOPHILS % (AUTO) 0.2 % (0.9-2.9); HEMATOCRIT 32.6 % (42.0-54.0); HEMOGLOBIN 11.1 g/dL (13.5-18.0); LYMPHOCYTES # (AUTO) 0.4 X10^3/uL (1.3-2.9); LYMPHOCYTES % (AUTO) 5.3 % (21.0-51.0); MEAN CORPUSCULAR HEMOGLOBIN 25.3 pg (27.0-34.0); MEAN CORPUSCULAR HGB CONC 34.1 g/dL (33.0-35.0); MEAN CORPUSCULAR VOLUME 74.2 fL (80.0-100.0); MONOCYTES # (AUTO) 0.6 x10^3/uL (0.3-0.8); NEUTROPHILS # (AUTO) 7.2 x10^3/uL (2.2-4.8); NEUTROPHILS % (AUTO) 87.3 % (42.0-75.0); PLATELET COUNT 56 X10^3/uL (150.0-450.0); RED BLOOD COUNT 4.39 X10^6/uL (4.7-6.0); RED CELL DISTRIBUTION WIDTH 15.3 % (11.6-16.5); WHITE BLOOD COUNT 8.2 X10^3/uL (3.6-10.0)
[2023-05-07 05:45] LABS: ALANINE AMINOTRANSFERASE 47 Units/L (12-78); ALBUMIN 1.6 g/dL (3.4-5.0); ALKALINE PHOSPHATASE 118 Units/L (46-116); ASPARTATE AMINO TRANSFERASE 46 Units/L (15-37); BLOOD UREA NITROGEN 24 mg/dL (7-18); CALCIUM 7.4 mg/dL (8.5-10.1); CARBON DIOXIDE 21.3 mmol/L (21-32); CHLORIDE 106 mmol/L (98-107); COR CA(FOR HYPOALB) 9.3 mg/dL (8.5-10.1); COR NA(FOR HYPERGLY) 139 mmol/L (136-145); GLUCOSE 140 mg/dL (65-99); POTASSIUM 3.7 mmol/L (3.5-5.1); SODIUM 138 mmol/L (136-145); eGFR NON BLACK RACES > 60 (>60)
[2023-05-07] MEDS: NS 1,000 ML IV 1,000 ML IV SCH ×4 (05:48→16:14)
[2023-05-07 05:49] LABS: MICROCYTOSIS SLIGHT; OVALOCYTES SLIGHT; PLATELET MORPHOLOGY COMMENT NORMAL (NORMAL)
[2023-05-07] MEDS ORDERED: CONSULT PHARMACY - POTASSIUM & MAGNESIUM XX SCH (06:00)
--- NOTE | 2023-05-07 08:26 | PCM.PROG ---
Progress Note Progress Note for Day of Date of Exam: 05/06/23 Subjective Subjective: The patient is feeling much better this morning. He is sitting on the edge of the bed eating breakfast. I am informed by the charge nurse that he is going for his HIDA scan tomorrow so we will follow-up the result then. We will wait for general surgery to evaluate the results of the HIDA scan and proceed with a cholecystectomy if needed. In the meantime his blood culture grew out E. coli and it is best treated with IV Fortaz and Cipro because they both have XENIA of less than 1 so we will DC the vancomycin and start those 2 antibiotics. Follow-up with them tomorrow morning. Past Medical Family Social History Allergies: Allergies No Known Drug Allergies Allergy (Unknown, Verified 05/04/23 09:47) Onset Date: 09/10/2012 Review of Systems ROS: No change since H&P Vital Signs and I&O's Vital Signs: Vital Signs Temperature 98.5 F Temperature 97.9 F Pulse Rate 76 Pulse Rate 79 Respiratory Rate 30 Respiratory Rate 20 Blood Pressure 92/51 Blood Pressure 121/64 O2 Sat by Pulse Oximetry 92 O2 Sat by Pulse Oximetry 92 Intake and Output: Intake & Output 05/04/23 05/05/23 05/06/23 05/07/23 11:59 11:59 11:59 11:59 Intake Total 5706 / 5937 4611 / 4611 2850 / 2850 Output Total 2100 / 2100 3650 / 3650 2250 / 2250 Balance 3606 / 3837 961 / 961 600 / 600 Physical Exam Oriented: Normal, Time, Person and Place Eyes: Normal Ear: Normal Nose: Normal Throat: Normal Respiratory: Normal Cardiovascular: Normal : Normal Auscultation: Bowel Sounds: Normal Tenderness: RUQ Skin: Normal Musculoskeletal: Normal Psychiatric: Normal Mood Description: Calm Affect: Normal Speech Pattern: Clear and Appropriate Laboratory and Diagnostics 05/07/23 04:10 05/07/23 04:10 Labs: 05/04/23 12:35 Blood Blood Culture - Final Escherichia Coli 05/04/23 11:55 Blood Blood Culture - Final Escherichia Coli 05/04/23 11:45 Urine,Catheterized Urine Culture - Final Laboratory WBC 8.2 X10^3/uL (3.6-10.0) 05/07/23 04:10 RBC 4.39 X10^6/uL (4.7-6.0) L 05/07/23 04:10 Hgb 11.1 g/dL (13.5-18.0) L 05/07/23 04:10 Hct 32.6 % (42.0-54.0) L 05/07/23 04:10 MCV 74.2 fL (80.0-100.0) L 05/07/23 04:10 MCH 25.3 pg (27.0-34.0) L 05/07/23 04:10 MCHC 34.1 g/dL (33.0-35.0) 05/07/23 04:10 RDW 15.3 % (11.6-16.5) 05/07/23 04:10 Plt Count 56 X10^3/uL (150.0-450.0) L 05/07/23 04:10 Plt Count Comment Decreased (ADEQUATE) 05/07/23 04:10 MPV 9.0 fL (7.4-11.0) 05/07/23 04:10 Neut % (Auto) 87.3 % (42.0-75.0) H 05/07/23 04:10 Lymph % (Auto) 5.3 % (21.0-51.0) L 05/07/23 04:10 [place]rack[place] % (Auto) 7.0 % (0.0-13.0) 05/07/23 04:10 Eos % (Auto) 0.2 % (0.9-2.9) L 05/07/23 04:10 Baso % (Auto) 0.2 % (0.2-1.0) 05/07/23 04:10 Neut # (Auto) 7.2 x10^3/uL (2.2-4.8) H 05/07/23 04:10 Lymph # (Auto) 0.4 X10^3/uL (1.3-2.9) L 05/07/23 04:10 [place]racken # (Auto) 0.6 x10^3/uL (0.3-0.8) 05/07/23 04:10 Eos # (Auto) 0.0 x10^3/uL (0.0-0.2) 05/07/23 04:10 Baso # (Auto) 0.0 X10^3/uL (0.0-0.1) 05/07/23 04:10 Absolute Nucleated RBC 0.1 /100WBC 05/07/23 04:10 Total Counted 100 05/06/23 04:10 Neutrophils % (Manual) 85 % (39-76) H 05/06/23 04:10 Band Neutrophils % 3 % (0-10) 05/06/23 04:10 Lymphocytes % (Manual) 5 % (13-43) L 05/06/23 04:10 Monocytes % (Manual) 7 % (4-9) 05/06/23 04:10 Metamyelocytes % 2 05/04/23 11:55 Toxic Granulation Noted 05/04/23 11:55 Plt Morphology Comment Normal (NORMAL) 05/07/23 04:10 RBC Morphology Abnormal (NORMAL) 05/07/23 04:10 Microcytosis Slight A 05/07/23 04:10 Ovalocytes Slight A 05/07/23 04:10 PT 16.9 SECONDS (11.8-14.3) 05/04/23 17:25 INR Target Range - 05/04/23 17:25 INR 1.40 (0.8-1.3) H 05/04/23 17:25 APTT 41.3 SECONDS (22.9-36.5) H 05/04/23 17:25 PTT Comment - 05/04/23 17:25 Fibrinogen 869 mg/dL (239-489) H 05/04/23 17:25 Sample Site Lr 05/06/23 04:39 ABG pH 7.420 (7.35-7.45) 05/06/23 04:39 ABG pCO2 30.0 mmHg (35.0-45.0) L 05/06/23 04:39 ABG pO2 77.0 mmHg (80.0-100.0) L 05/06/23 04:39 ABG HCO3 19.5 mmol/L (22-26) L 05/06/23 04:39 ABG O2 Saturation 95.0 % (90-100) 05/06/23 04:39 ABG Base Excess -4.0 mmol/L (-2.0-2.0) L 05/06/23 04:39 Trevon Test Pos 05/06/23 04:39 A-a Gradient 114.0 mmHg 05/06/23 04:39 FiO2 32.0 05/06/23 04:39 Blood Gas Comments Sagar well ae 05/06/23 04:39 Sodium 138 mmol/L (136-145) 05/07/23 04:10 Corrected Sodium 139 mmol/L (136-145) 05/07/23 04:10 Potassium 3.7 mmol/L (3.5-5.1) 05/07/23 04:10 Chloride 106 mmol/L (98-107) 05/07/23 04:10 Carbon Dioxide 21.3 mmol/L (21-32) 05/07/23 04:10 BUN 24 mg/dL (7-18) H 05/07/23 04:10 Creatinine 0.80 mg/dL (0.70-1.30) 05/07/23 04:10 Est GFR (MDRD) Af Amer > 60 (>60) 05/07/23 04:10 Est GFR (MDRD) Non-Af > 60 (>60) 05/07/23 04:10 Glucose 140 mg/dL (65-99) H 05/07/23 04:10 POC Glucose (mg/dL) 133 mg/dL (65-99) H 05/07/23 05:14 Lactic Acid 1.9 mmol/L (0.4-2.0) 05/04/23 15:53 Calcium 7.4 mg/dL (8.5-10.1) L 05/07/23 04:10 Corrected Calcium 9.3 mg/dL (8.5-10.1) 05/07/23 04:10 Magnesium 2.4 mg/dL (2.0-2.9) 05/06/23 04:10 Total Bilirubin 0.30 mg/dL (0.2-1.0) 05/07/23 04:10 AST 46 Units/L (15-37) H 05/07/23 04:10 ALT 47 Units/L (12-78) 05/07/23 04:10 Alkaline Phosphatase 118 Units/L (46-116) H 05/07/23 04:10 Creatine Kinase 66 Units/L (39-308) 05/04/23 11:55 Troponin I High Sens 39.8 ng/L (4.0-60.0) 05/04/23 11:55 B-Natriuretic Peptide 169 pg/mL (0-79) H 05/06/23 04:10 Total Protein 5.0 g/dL (6.4-8.2) L 05/07/23 04:10 Albumin 1.6 g/dL (3.4-5.0) L 05/07/23 04:10 Globulin 3.4 g/dL (2.5-4.5) 05/07/23 04:10 Albumin/Globulin Ratio 0.5 Ratio (1.1-2.1) L 05/07/23 04:10 Amylase 23 Units/L (25-115) L 05/04/23 11:55 Lipase 77 Units/L (73-393) 05/04/23 11:55 Total PSA 38.28 ng/mL (0.13-4.0) H 05/06/23 04:10 Specimen Type Catherized urine 05/04/23 11:45 Urine Color Yellow (YELLOW) 05/04/23 11:45 Urine Appearance Hazy (CLEAR) 05/04/23 11:45 Urine pH 5.0 (5.0 - 8.0) 05/04/23 11:45 Ur Specific [place] 1.015 (1.000-1.030) 05/04/23 11:45 Urine Protein 2+ (NEGATIVE) 05/04/23 11:45 Urine Glucose (UA) 4+ (NEGATIVE) 05/04/23 11:45 Urine Ketones 1+ (NEGATIVE) 05/04/23 11:45 Urine Blood 5+ (NEGATIVE) 05/04/23 11:45 Urine Nitrite Negative (NEGATIVE) 05/04/23 11:45 Urine Bilirubin Negative (NEGATIVE) 05/04/23 11:45 Urine Urobilinogen Normal (NORMAL) 05/04/23 11:45 Ur Leukocyte Esterase Negative (NEGATIVE) 05/04/23 11:45 Urine RBC 10-20 /HPF (0-3) A 05/04/23 11:45 Urine WBC 0-2 /HPF (0-5) 05/04/23 11:45 Ur Squamous Epith Cells Rare /HPF (NEGATIVE) 05/04/23 11:45 Amorphous Sediment 1+ /HPF (NEGATIVE) 05/04/23 11:45 Urine Bacteria Trace /HPF (NEGATIVE) 05/04/23 11:45 Granular Casts Few /LPF (NEGATIVE) 05/04/23 11:45 Ur Culture Indicated? Yes/culture set up 05/04/23 11:45 SARS-CoV-2 (PCR) Negative (NEGATIVE) 05/04/23 16:22 Influenza Type A (PCR) Negative (NEGATIVE) 05/04/23 16:22 Influenza Type B (PCR) Negative (NEGATIVE) 05/04/23 16:22 RSV (PCR) Negative (NEGATIVE) 05/04/23 16:22 Radiology Reviewed: Yes Plan (1) Cholecystitis: Status: Acute Plan: Patient is getting HIDA scan this morning. Follow-up with results later today. (2) Sepsis: Status: Acute Qualifiers: Acute renal failure type: unspecified Sepsis type: Escherichia coli Severe sepsis acute organ dysfunction type: acute renal failure Severe sepsis shock status: with septic shock Plan: Discontinue IV vancomycin. Start the patient on IV Fortaz and ciprofloxacin. (3) Tachycardia: Status: None Plan: IV hydration to help bring her blood pressure. (4) Enlarged prostate: Status: Acute Plan: Check MRI of abdomen pelvis (5) Insulin-requiring or dependent type II diabetes mellitus: Status: Acute Plan: Slight scale regular insulin per protocol. (6) Benign prostatic hyperplasia: Status: None Qualifiers: Lower urinary tract symptom detail: nocturia Plan: Check PSA in the morning. (7) Hypotension: Status: Resolved Qualifiers: Hypotension type: unspecified hypotension type Qualified Code(s): I95.9 - Hypotension, unspecified Plan: Continue Levophed but wean off as tolerated. (8) Acute renal failure: Status: Resolved Qualifiers: Acute renal failure type: unspecified Qualified Code(s): N17.9 - Acute kidney failure, unspecified Plan: IV hydration. (9) Prostate cancer metastatic to bone: Status: Acute
[2023-05-07] MEDS ORDERED: K-RIDER 10 MEQ/NS 100 ML 10 MEQ/100 ML BAG IV SCH (09:00)
[2023-05-07] MEDS: CIPRO IV 400 MG PREMIX* 400 MG/200 ML IV.SOLN. IV SCH ×2 (11:10→20:01)
[2023-05-07 13:45] LABS: INR 1.18 (0.8-1.3)
[2023-05-07] MEDS: PROTONIX INJ 40 MG VIAL IVP SCH ×2 (13:55→20:06)
[2023-05-07] MEDS ORDERED: K-DUR TAB 20 MEQ PO SCH (14:00)
[2023-05-07] MEDS ORDERED: PHARMACY COMMENT IV NR (15:30)
--- NOTE | 2023-05-07 16:35 | PCM.PROG ---
Progress Note Progress Note for Day of Date of Exam: 05/07/23 Subjective Subjective: The patient is feeling the best he is felt since he been in the hospital this morning. He got up and was brushing his teeth and walk around the room on his own accord. He did go this morning and have his HIDA scan in [place], [place] and reports shows he does look like he has a chronic or possible acute cholecystitis. Our general surgeon will be back tomorrow and likely will proceed with a cholecystectomy as long as his platelet count goes up. I did start him on IV Protonix because of decrease in hemoglobin and decreasing platelets this morning. Dr. Johnson will be rounding for me tomorrow as I will be out of town to take care of Mr. Dennis. Past Medical Family Social History Allergies: Allergies No Known Drug Allergies Allergy (Unknown, Verified 05/04/23 09:47) Onset Date: 09/10/2012 Review of Systems ROS: No change since H&P Vital Signs and I&O's Vital Signs: Vital Signs Temperature 97.6 F Temperature 97.7 F Pulse Rate 63 Pulse Rate 74 Respiratory Rate 21 Respiratory Rate 24 Blood Pressure 114/56 Blood Pressure 148/71 O2 Sat by Pulse Oximetry 95 O2 Sat by Pulse Oximetry 94 Intake and Output: Intake & Output 05/05/23 05/06/23 05/07/23 05/08/23 11:59 11:59 11:59 11:59 Intake Total 5706 / 5937 4611 / 4611 2850 / 2850 1793 / 1793 Output Total 2100 / 2100 3650 / 3650 2250 / 2250 925 / 925 Balance 3606 / 3837 961 / 961 600 / 600 868 / 868 Physical Exam Oriented: Normal, Time, Person and Place Eyes: Normal Ear: Normal Nose: Normal Throat: Normal Respiratory: Normal Cardiovascular: Normal : Normal Auscultation: Bowel Sounds: Normal Tenderness: RUQ Skin: Normal Musculoskeletal: Normal Psychiatric: Normal Mood Description: Calm Affect: Normal Speech Pattern: Clear and Appropriate Laboratory and Diagnostics 05/07/23 04:10 05/07/23 04:10 Labs: 05/04/23 12:35 Blood Blood Culture - Final Escherichia Coli 05/04/23 11:55 Blood Blood Culture - Final Escherichia Coli 05/04/23 11:45 Urine,Catheterized Urine Culture - Final Laboratory WBC 8.2 X10^3/uL (3.6-10.0) 05/07/23 04:10 RBC 4.39 X10^6/uL (4.7-6.0) L 05/07/23 04:10 Hgb 11.1 g/dL (13.5-18.0) L 05/07/23 04:10 Hct 32.6 % (42.0-54.0) L 05/07/23 04:10 MCV 74.2 fL (80.0-100.0) L 05/07/23 04:10 MCH 25.3 pg (27.0-34.0) L 05/07/23 04:10 MCHC 34.1 g/dL (33.0-35.0) 05/07/23 04:10 RDW 15.3 % (11.6-16.5) 05/07/23 04:10 Plt Count 56 X10^3/uL (150.0-450.0) L 05/07/23 04:10 Plt Count Comment Decreased (ADEQUATE) 05/07/23 04:10 MPV 9.0 fL (7.4-11.0) 05/07/23 04:10 Neut % (Auto) 87.3 % (42.0-75.0) H 05/07/23 04:10 Lymph % (Auto) 5.3 % (21.0-51.0) L 05/07/23 04:10 [place] % (Auto) 7.0 % (0.0-13.0) 05/07/23 04:10 Eos % (Auto) 0.2 % (0.9-2.9) L 05/07/23 04:10 Baso % (Auto) 0.2 % (0.2-1.0) 05/07/23 04:10 Neut # (Auto) 7.2 x10^3/uL (2.2-4.8) H 05/07/23 04:10 Lymph # (Auto) 0.4 X10^3/uL (1.3-2.9) L 05/07/23 04:10 [place] # (Auto) 0.6 x10^3/uL (0.3-0.8) 05/07/23 04:10 Eos # (Auto) 0.0 x10^3/uL (0.0-0.2) 05/07/23 04:10 Baso # (Auto) 0.0 X10^3/uL (0.0-0.1) 05/07/23 04:10 Absolute Nucleated RBC 0.1 /100WBC 05/07/23 04:10 Total Counted 100 05/06/23 04:10 Neutrophils % (Manual) 85 % (39-76) H 05/06/23 04:10 Band Neutrophils % 3 % (0-10) 05/06/23 04:10 Lymphocytes % (Manual) 5 % (13-43) L 05/06/23 04:10 Monocytes % (Manual) 7 % (4-9) 05/06/23 04:10 Metamyelocytes % 2 05/04/23 11:55 Toxic Granulation Noted 05/04/23 11:55 Plt Morphology Comment Normal (NORMAL) 05/07/23 04:10 RBC Morphology Abnormal (NORMAL) 05/07/23 04:10 Microcytosis Slight A 05/07/23 04:10 Ovalocytes Slight A 05/07/23 04:10 PT 14.8 SECONDS (11.8-14.3) 05/07/23 13:25 INR Target Range - 05/07/23 13:25 INR 1.18 (0.8-1.3) 05/07/23 13:25 APTT 30.1 SECONDS (22.9-36.5) 05/07/23 13:25 PTT Comment - 05/07/23 13:25 Fibrinogen 826 mg/dL (239-489) H 05/07/23 13:25 Sample Site Lr 05/06/23 04:39 ABG pH 7.420 (7.35-7.45) 05/06/23 04:39 ABG pCO2 30.0 mmHg (35.0-45.0) L 05/06/23 04:39 ABG pO2 77.0 mmHg (80.0-100.0) L 05/06/23 04:39 ABG HCO3 19.5 mmol/L (22-26) L 05/06/23 04:39 ABG O2 Saturation 95.0 % (90-100) 05/06/23 04:39 ABG Base Excess -4.0 mmol/L (-2.0-2.0) L 05/06/23 04:39 Trevon Test Pos 05/06/23 04:39 A-a Gradient 114.0 mmHg 05/06/23 04:39 FiO2 32.0 05/06/23 04:39 Blood Gas Comments [place] well ae 05/06/23 04:39 Sodium 138 mmol/L (136-145) 05/07/23 04:10 Corrected Sodium 139 mmol/L (136-145) 05/07/23 04:10 Potassium 3.7 mmol/L (3.5-5.1) 05/07/23 04:10 Chloride 106 mmol/L (98-107) 05/07/23 04:10 Carbon Dioxide 21.3 mmol/L (21-32) 05/07/23 04:10 BUN 24 mg/dL (7-18) H 05/07/23 04:10 Creatinine 0.80 mg/dL (0.70-1.30) 05/07/23 04:10 Est GFR (MDRD) Af Amer > 60 (>60) 05/07/23 04:10 Est GFR (MDRD) Non-Af > 60 (>60) 05/07/23 04:10 Glucose 140 mg/dL (65-99) H 05/07/23 04:10 POC Glucose (mg/dL) 161 mg/dL (65-99) H 05/07/23 15:42 Lactic Acid 1.9 mmol/L (0.4-2.0) 05/04/23 15:53 Calcium 7.4 mg/dL (8.5-10.1) L 05/07/23 04:10 Corrected Calcium 9.3 mg/dL (8.5-10.1) 05/07/23 04:10 Magnesium 2.4 mg/dL (2.0-2.9) 05/06/23 04:10 Total Bilirubin 0.30 mg/dL (0.2-1.0) 05/07/23 04:10 AST 46 Units/L (15-37) H 05/07/23 04:10 ALT 47 Units/L (12-78) 05/07/23 04:10 Alkaline Phosphatase 118 Units/L (46-116) H 05/07/23 04:10 Creatine Kinase 66 Units/L (39-308) 05/04/23 11:55 Troponin I High Sens 39.8 ng/L (4.0-60.0) 05/04/23 11:55 B-Natriuretic Peptide 169 pg/mL (0-79) H 05/06/23 04:10 Total Protein 5.0 g/dL (6.4-8.2) L 05/07/23 04:10 Albumin 1.6 g/dL (3.4-5.0) L 05/07/23 04:10 Globulin 3.4 g/dL (2.5-4.5) 05/07/23 04:10 Albumin/Globulin Ratio 0.5 Ratio (1.1-2.1) L 05/07/23 04:10 Amylase 23 Units/L (25-115) L 05/04/23 11:55 Lipase 77 Units/L (73-393) 05/04/23 11:55 Total PSA 38.28 ng/mL (0.13-4.0) H 05/06/23 04:10 Specimen Type Catherized urine 05/04/23 11:45 Urine Color Yellow (YELLOW) 05/04/23 11:45 Urine Appearance Hazy (CLEAR) 05/04/23 11:45 Urine pH 5.0 (5.0 - 8.0) 05/04/23 11:45 Ur Specific [place] 1.015 (1.000-1.030) 05/04/23 11:45 Urine Protein 2+ (NEGATIVE) 05/04/23 11:45 Urine Glucose (UA) 4+ (NEGATIVE) 05/04/23 11:45 Urine Ketones 1+ (NEGATIVE) 05/04/23 11:45 Urine Blood 5+ (NEGATIVE) 05/04/23 11:45 Urine Nitrite Negative (NEGATIVE) 05/04/23 11:45 Urine Bilirubin Negative (NEGATIVE) 05/04/23 11:45 Urine Urobilinogen Normal (NORMAL) 05/04/23 11:45 Ur Leukocyte Esterase Negative (NEGATIVE) 05/04/23 11:45 Urine RBC 10-20 /HPF (0-3) A 05/04/23 11:45 Urine WBC 0-2 /HPF (0-5) 05/04/23 11:45 Ur Squamous Epith Cells Rare /HPF (NEGATIVE) 05/04/23 11:45 Amorphous Sediment 1+ /HPF (NEGATIVE) 05/04/23 11:45 Urine Bacteria Trace /HPF (NEGATIVE) 05/04/23 11:45 Granular Casts Few /LPF (NEGATIVE) 05/04/23 11:45 Ur Culture Indicated? Yes/culture set up 05/04/23 11:45 SARS-CoV-2 (PCR) Negative (NEGATIVE) 05/04/23 16:22 Influenza Type A (PCR) Negative (NEGATIVE) 05/04/23 16:22 Influenza Type B (PCR) Negative (NEGATIVE) 05/04/23 16:22 RSV (PCR) Negative (NEGATIVE) 05/04/23 16:22 Radiology Reviewed: Yes Plan (1) Thrombocytopenia: Status: Acute Narrative Support Text: Patient is having decrease in hemoglobin over the last 3 days as well as decreasing blood platelets. Plan: I will go ahead and start the patient on IV Protonix 40 mg IV every 12 hours as he is tender to palpation in the epigastric region today at lunch. (2) Cholecystitis: Status: Acute Plan: The patient will be evaluated by general surgery tomorrow as we are planning for a cholecystectomy as long as his platelet count has come up. (3) Sepsis: Status: Acute Qualifiers: Acute renal failure type: unspecified Sepsis type: Escherichia coli Severe sepsis acute organ dysfunction type: acute renal failure Severe sepsis shock status: with septic shock Plan: Discontinue IV vancomycin. Start the patient on IV Fortaz and ciprofloxacin. (4) Tachycardia: Status: Resolved Plan: IV hydration to help bring her blood pressure. (5) Enlarged prostate: Status: Acute Plan: Check MRI of abdomen pelvis (6) Insulin-requiring or dependent type II diabetes mellitus: Status: Acute Plan: Slight scale regular insulin per protocol. (7) Benign prostatic hyperplasia: Status: None Qualifiers: Lower urinary tract symptom detail: nocturia Plan: Check PSA in the morning. (8) Hypotension: Status: Resolved Qualifiers: Hypotension type: unspecified hypotension type Qualified Code(s): I95.9 - Hypotension, unspecified Plan: Continue Levophed but wean off as tolerated. (9) Acute renal failure: Status: Resolved Qualifiers: Acute renal failure type: unspecified Qualified Code(s): N17.9 - Acute kidney failure, unspecified Plan: IV hydration. (10) Prostate cancer metastatic to bone: Status: Acute
[2023-05-07] MEDS: RESTORIL CAP 15 MG PO PRN (20:06)
[2023-05-07] MEDS: SNACK - Diabetic Appropriate PO SCH (20:06)
[2023-05-07] MEDS: ULTRAM PO PRN (20:07)
[2023-05-07] MEDS: NovoLIN R (or HumuLIN R) SUBCUT PRN (20:15)
[2023-05-08] MEDS: FORTAZ or TAZICEF VIAL INJ 1 G in NS 100 ML IV 100 ML IV SCH ×3 (05:04→21:00)
[2023-05-08] MEDS: NS 1,000 ML IV 1,000 ML IV SCH ×4 (05:04→20:59)
[2023-05-08 05:11] LABS: BASOPHILS % (AUTO) 0.1 % (0.2-1.0); EOSINOPHILS # (AUTO) 0.1 x10^3/uL (0.0-0.2); EOSINOPHILS % (AUTO) 0.7 % (0.9-2.9); HEMATOCRIT 32.6 % (42.0-54.0); HEMOGLOBIN 11.1 g/dL (13.5-18.0); LYMPHOCYTES # (AUTO) 0.6 X10^3/uL (1.3-2.9); MEAN CORPUSCULAR HEMOGLOBIN 25.1 pg (27.0-34.0); MEAN CORPUSCULAR VOLUME 73.7 fL (80.0-100.0); MEAN PLATELET VOLUME 9.4 fL (7.4-11.0); MONOCYTES # (AUTO) 0.8 x10^3/uL (0.3-0.8); NEUTROPHILS # (AUTO) 6.9 x10^3/uL (2.2-4.8); NEUTROPHILS % (AUTO) 82.2 % (42.0-75.0); PLATELET COUNT 67 X10^3/uL (150.0-450.0); RED BLOOD COUNT 4.42 X10^6/uL (4.7-6.0); RED CELL DISTRIBUTION WIDTH 15.5 % (11.6-16.5); WHITE BLOOD COUNT 8.5 X10^3/uL (3.6-10.0)
[2023-05-08 05:26] LABS: ALANINE AMINOTRANSFERASE 41 Units/L (12-78); ALBUMIN 1.6 g/dL (3.4-5.0); ALKALINE PHOSPHATASE 95 Units/L (46-116); ASPARTATE AMINO TRANSFERASE 34 Units/L (15-37); BLOOD UREA NITROGEN 19 mg/dL (7-18); CALCIUM 7.7 mg/dL (8.5-10.1); CARBON DIOXIDE 22.5 mmol/L (21-32); CHLORIDE 106 mmol/L (98-107); COR CA(FOR HYPOALB) 9.6 mg/dL (8.5-10.1); COR NA(FOR HYPERGLY) 139 mmol/L (136-145); CREATININE 0.73 mg/dL (0.70-1.30); GLUCOSE 125 mg/dL (65-99); POTASSIUM 3.7 mmol/L (3.5-5.1); SODIUM 138 mmol/L (136-145); TOTAL PROTEIN 4.9 g/dL (6.4-8.2); eGFR NON BLACK RACES > 60 (>60)
[2023-05-08 05:37] LABS: PLATELET MORPHOLOGY COMMENT NORMAL (NORMAL)
[2023-05-08 05:38] LABS: BURR CELLS PRESENT; HYPOCHROMASIA SLIGHT; MICROCYTOSIS SLIGHT; OVALOCYTES PRESENT
[2023-05-08] MEDS ORDERED: CONSULT PHARMACY - POTASSIUM & MAGNESIUM XX SCH (06:00)
[2023-05-08] MEDS: PROTONIX INJ 40 MG VIAL IVP SCH ×2 (08:40→20:50)
[2023-05-08] MEDS: CIPRO IV 400 MG PREMIX* 400 MG/200 ML IV.SOLN. IV SCH ×2 (08:40→20:50)
[2023-05-08] MEDS ORDERED: MAG-OX TAB PO SCH (09:00)
[2023-05-08] MEDS ORDERED: K-DUR TAB 20 MEQ PO SCH (09:00)
--- NOTE | 2023-05-08 10:58 | PCM.PROG ---
Progress Note Progress Note for Day of Date of Exam: 05/08/23 Subjective Subjective: Patient is a 77-year-old male that was admitted for acute cholecystitis, and E. coli bacteremia. This morning he reports some improvement in his symptoms. No acute events overnight. Labs/imaging: Wbc 8.5, Hgb 11.1, Plt 67, Na 138, K 3.7, Creatinine 0.73, Glucose 125. He did have his HIDA scan in [place], [place] and reports shows he does look like he has a chronic or possible acute cholecystitis. General surgery is following and will evaluate today for possibel cholecystectomy. Pt is currently NPO. Continue antibiotics. Otherwise, continue with current treatment plan. Continue to closely monitor and follow up labs. Past Medical Family Social History Allergies: Allergies No Known Drug Allergies Allergy (Unknown, Verified 05/04/23 09:47) Onset Date: 09/10/2012 Review of Systems ROS: No change since H&P Vital Signs and I&O's Vital Signs: Vital Signs Temperature 98.1 F Pulse Rate 59 Pulse Rate 68 Pulse Rate 73 Pulse Rate 69 Pulse Rate 71 Pulse Rate 62 Pulse Rate 66 Pulse Rate 83 Pulse Rate 75 Respiratory Rate 23 Respiratory Rate 27 Respiratory Rate 22 Respiratory Rate 25 Respiratory Rate 31 Respiratory Rate 22 Respiratory Rate 20 Respiratory Rate 16 Blood Pressure 133/66 Blood Pressure 146/70 Blood Pressure 157/76 Blood Pressure 131/66 Blood Pressure 131/66 O2 Sat by Pulse Oximetry 94 O2 Sat by Pulse Oximetry 94 O2 Sat by Pulse Oximetry 96 O2 Sat by Pulse Oximetry 94 O2 Sat by Pulse Oximetry 93 O2 Sat by Pulse Oximetry 95 O2 Sat by Pulse Oximetry 94 O2 Sat by Pulse Oximetry 95 O2 Sat by Pulse Oximetry 95 Intake and Output: Intake & Output 05/05/23 05/06/23 05/07/23 05/08/23 23:59 23:59 23:59 23:59 Intake Total 4540 / 4540 3151 / 3151 3672 / 3672 792 / 792 Output Total 3100 / 3100 2950 / 2950 2400 / 2400 600 / 600 Balance 1440 / 1440 201 / 201 1272 / 1272 192 / 192 Physical Exam Oriented: Normal, Time, Person and Place Eyes: Normal Ear: Normal Nose: Normal Throat: Normal Respiratory: Normal Cardiovascular: Normal : Normal Auscultation: Bowel Sounds: Normal Tenderness: RUQ Skin: Normal Musculoskeletal: Normal Psychiatric: Normal Mood Description: Calm Affect: Normal Speech Pattern: Clear and Appropriate Laboratory and Diagnostics 05/08/23 04:00 05/08/23 04:00 Labs: 05/04/23 12:35 Blood Blood Culture - Final Escherichia Coli 05/04/23 11:55 Blood Blood Culture - Final Escherichia Coli 05/04/23 11:45 Urine,Catheterized Urine Culture - Final Laboratory WBC 8.5 X10^3/uL (3.6-10.0) 05/08/23 04:00 RBC 4.42 X10^6/uL (4.7-6.0) L 05/08/23 04:00 Hgb 11.1 g/dL (13.5-18.0) L 05/08/23 04:00 Hct 32.6 % (42.0-54.0) L 05/08/23 04:00 MCV 73.7 fL (80.0-100.0) L 05/08/23 04:00 MCH 25.1 pg (27.0-34.0) L 05/08/23 04:00 MCHC 34.0 g/dL (33.0-35.0) 05/08/23 04:00 RDW 15.5 % (11.6-16.5) 05/08/23 04:00 Plt Count 67 X10^3/uL (150.0-450.0) L 05/08/23 04:00 Plt Count Comment Decreased (ADEQUATE) 05/08/23 04:00 MPV 9.4 fL (7.4-11.0) 05/08/23 04:00 Neut % (Auto) 82.2 % (42.0-75.0) H 05/08/23 04:00 Lymph % (Auto) 7.0 % (21.0-51.0) L 05/08/23 04:00 [place] % (Auto) 10.0 % (0.0-13.0) 05/08/23 04:00 Eos % (Auto) 0.7 % (0.9-2.9) L 05/08/23 04:00 Baso % (Auto) 0.1 % (0.2-1.0) L 05/08/23 04:00 Neut # (Auto) 6.9 x10^3/uL (2.2-4.8) H 05/08/23 04:00 Lymph # (Auto) 0.6 X10^3/uL (1.3-2.9) L 05/08/23 04:00 [place] # (Auto) 0.8 x10^3/uL (0.3-0.8) 05/08/23 04:00 Eos # (Auto) 0.1 x10^3/uL (0.0-0.2) 05/08/23 04:00 Baso # (Auto) 0.0 X10^3/uL (0.0-0.1) 05/08/23 04:00 Absolute Nucleated RBC 0.1 /100WBC 05/08/23 04:00 Total Counted 100 05/06/23 04:10 Neutrophils % (Manual) 85 % (39-76) H 05/06/23 04:10 Band Neutrophils % 3 % (0-10) 05/06/23 04:10 Lymphocytes % (Manual) 5 % (13-43) L 05/06/23 04:10 Monocytes % (Manual) 7 % (4-9) 05/06/23 04:10 Metamyelocytes % 2 05/04/23 11:55 Toxic Granulation Noted 05/04/23 11:55 Plt Morphology Comment Normal (NORMAL) 05/08/23 04:00 RBC Morphology Abnormal (NORMAL) 05/08/23 04:00 Hypochromasia Slight A 05/08/23 04:00 Microcytosis Slight A 05/08/23 04:00 Ovalocytes Present 05/08/23 04:00 [place] Cells Present 05/08/23 04:00 PT 14.8 SECONDS (11.8-14.3) 05/07/23 13:25 INR Target Range - 05/07/23 13:25 INR 1.18 (0.8-1.3) 05/07/23 13:25 APTT 30.1 SECONDS (22.9-36.5) 05/07/23 13:25 PTT Comment - 05/07/23 13:25 Fibrinogen 826 mg/dL (239-489) H 05/07/23 13:25 Sample Site Lr 05/06/23 04:39 ABG pH 7.420 (7.35-7.45) 05/06/23 04:39 ABG pCO2 30.0 mmHg (35.0-45.0) L 05/06/23 04:39 ABG pO2 77.0 mmHg (80.0-100.0) L 05/06/23 04:39 ABG HCO3 19.5 mmol/L (22-26) L 05/06/23 04:39 ABG O2 Saturation 95.0 % (90-100) 05/06/23 04:39 ABG Base Excess -4.0 mmol/L (-2.0-2.0) L 05/06/23 04:39 Trevon Test Pos 05/06/23 04:39 A-a Gradient 114.0 mmHg 05/06/23 04:39 FiO2 32.0 05/06/23 04:39 Blood Gas Comments [place] well ae 05/06/23 04:39 Sodium 138 mmol/L (136-145) 05/08/23 04:00 Corrected Sodium 139 mmol/L (136-145) 05/08/23 04:00 Potassium 3.7 mmol/L (3.5-5.1) 05/08/23 04:00 Chloride 106 mmol/L (98-107) 05/08/23 04:00 Carbon Dioxide 22.5 mmol/L (21-32) 05/08/23 04:00 BUN 19 mg/dL (7-18) H 05/08/23 04:00 Creatinine 0.73 mg/dL (0.70-1.30) 05/08/23 04:00 Est GFR (MDRD) Af Amer > 60 (>60) 05/08/23 04:00 Est GFR (MDRD) Non-Af > 60 (>60) 05/08/23 04:00 Glucose 125 mg/dL (65-99) H 05/08/23 04:00 POC Glucose (mg/dL) 135 mg/dL (65-99) H 05/08/23 05:15 Lactic Acid 1.9 mmol/L (0.4-2.0) 05/04/23 15:53 Calcium 7.7 mg/dL (8.5-10.1) L 05/08/23 04:00 Corrected Calcium 9.6 mg/dL (8.5-10.1) 05/08/23 04:00 Magnesium 1.7 mg/dL (2.0-2.9) L 05/08/23 04:00 Total Bilirubin 0.40 mg/dL (0.2-1.0) 05/08/23 04:00 AST 34 Units/L (15-37) 05/08/23 04:00 ALT 41 Units/L (12-78) 05/08/23 04:00 Alkaline Phosphatase 95 Units/L (46-116) 05/08/23 04:00 Creatine Kinase 66 Units/L (39-308) 05/04/23 11:55 Troponin I High Sens 39.8 ng/L (4.0-60.0) 05/04/23 11:55 B-Natriuretic Peptide 169 pg/mL (0-79) H 05/06/23 04:10 Total Protein 4.9 g/dL (6.4-8.2) L 05/08/23 04:00 Albumin 1.6 g/dL (3.4-5.0) L 05/08/23 04:00 Globulin 3.3 g/dL (2.5-4.5) 05/08/23 04:00 Albumin/Globulin Ratio 0.5 Ratio (1.1-2.1) L 05/08/23 04:00 Amylase 23 Units/L (25-115) L 05/04/23 11:55 Lipase 77 Units/L (73-393) 05/04/23 11:55 Total PSA 38.28 ng/mL (0.13-4.0) H 05/06/23 04:10 Specimen Type Catherized urine 05/04/23 11:45 Urine Color Yellow (YELLOW) 05/04/23 11:45 Urine Appearance Hazy (CLEAR) 05/04/23 11:45 Urine pH 5.0 (5.0 - 8.0) 05/04/23 11:45 Ur Specific [place] 1.015 (1.000-1.030) 05/04/23 11:45 Urine Protein 2+ (NEGATIVE) 05/04/23 11:45 Urine Glucose (UA) 4+ (NEGATIVE) 05/04/23 11:45 Urine Ketones 1+ (NEGATIVE) 05/04/23 11:45 Urine Blood 5+ (NEGATIVE) 05/04/23 11:45 Urine Nitrite Negative (NEGATIVE) 05/04/23 11:45 Urine Bilirubin Negative (NEGATIVE) 05/04/23 11:45 Urine Urobilinogen Normal (NORMAL) 05/04/23 11:45 Ur Leukocyte Esterase Negative (NEGATIVE) 05/04/23 11:45 Urine RBC 10-20 /HPF (0-3) A 05/04/23 11:45 Urine WBC 0-2 /HPF (0-5) 05/04/23 11:45 Ur Squamous Epith Cells Rare /HPF (NEGATIVE) 05/04/23 11:45 Amorphous Sediment 1+ /HPF (NEGATIVE) 05/04/23 11:45 Urine Bacteria Trace /HPF (NEGATIVE) 05/04/23 11:45 Granular Casts Few /LPF (NEGATIVE) 05/04/23 11:45 Ur Culture Indicated? Yes/culture set up 05/04/23 11:45 SARS-CoV-2 (PCR) Negative (NEGATIVE) 05/04/23 16:22 Influenza Type A (PCR) Negative (NEGATIVE) 05/04/23 16:22 Influenza Type B (PCR) Negative (NEGATIVE) 05/04/23 16:22 RSV (PCR) Negative (NEGATIVE) 05/04/23 16:22 Plan (1) Thrombocytopenia: Status: Acute Plan: IV Protonix 40 mg IV every 12 hours (2) Cholecystitis: Status: Acute Plan: The patient will be evaluated by general surgery today as we are planning for a cholecystectomy as long as his platelet count has come up. (3) Sepsis: Status: Acute Qualifiers: Acute renal failure type: unspecified Sepsis type: Escherichia coli Severe sepsis acute organ dysfunction type: acute renal failure Severe sepsis shock status: with septic shock Plan: Continue IV Fortaz and ciprofloxacin. (4) Tachycardia: Status: Resolved Plan: IV hydration to help bring her blood pressure. (5) Enlarged prostate: Status: Acute Plan: Check MRI of abdomen pelvis (6) Insulin-requiring or dependent type II diabetes mellitus: Status: Acute Plan: Slight scale regular insulin per protocol. (7) Benign prostatic hyperplasia: Status: None Qualifiers: Lower urinary tract symptom detail: nocturia Plan: Check PSA in the morning. (8) Hypotension: Status: Resolved Qualifiers: Hypotension type: unspecified hypotension type Qualified Code(s): I95.9 - Hypotension, unspecified (9) Acute renal failure: Status: Resolved Qualifiers: Acute renal failure type: unspecified Qualified Code(s): N17.9 - Acute kidney failure, unspecified Plan: IV hydration. (10) Prostate cancer metastatic to bone: Status: Acute Plan: Will need to be followed by urology outpatient.
[2023-05-08] MEDS: NovoLIN R (or HumuLIN R) SUBCUT PRN ×2 (15:48→20:53)
[2023-05-08] MEDS ORDERED: MAG-OX TAB ONE (19:03)
[2023-05-08] MEDS ORDERED: K-DUR TAB 20 MEQ PO ONE (19:03)
[2023-05-08] MEDS: SNACK - Diabetic Appropriate PO SCH (20:50)
[2023-05-08] MEDS: RESTORIL CAP 15 MG PO PRN (20:51)
[2023-05-08] MEDS: K-DUR TAB 20 MEQ PO SCH (20:51)
[2023-05-08] MEDS: MAG-OX TAB PO SCH (20:51)
[2023-05-08] MEDS: ULTRAM PO PRN (20:52)
[2023-05-09] MEDS: NS 1,000 ML IV 1,000 ML IV SCH ×3 (00:30→16:31)
[2023-05-09 05:31] LABS: BASOPHILS % (AUTO) 0.1 % (0.2-1.0); EOSINOPHILS # (AUTO) 0.1 x10^3/uL (0.0-0.2); EOSINOPHILS % (AUTO) 0.9 % (0.9-2.9); HEMATOCRIT 33.7 % (42.0-54.0); HEMOGLOBIN 11.3 g/dL (13.5-18.0); LYMPHOCYTES # (AUTO) 0.7 X10^3/uL (1.3-2.9); LYMPHOCYTES % (AUTO) 7.4 % (21.0-51.0); MEAN CORPUSCULAR HEMOGLOBIN 24.9 pg (27.0-34.0); MEAN CORPUSCULAR HGB CONC 33.6 g/dL (33.0-35.0); MEAN CORPUSCULAR VOLUME 74.2 fL (80.0-100.0); MEAN PLATELET VOLUME 8.4 fL (7.4-11.0); MONOCYTES # (AUTO) 0.8 x10^3/uL (0.3-0.8); NEUTROPHILS # (AUTO) 7.7 x10^3/uL (2.2-4.8); NEUTROPHILS % (AUTO) 82.6 % (42.0-75.0); PLATELET COUNT 101 X10^3/uL (150.0-450.0); RED BLOOD COUNT 4.55 X10^6/uL (4.7-6.0); RED CELL DISTRIBUTION WIDTH 14.9 % (11.6-16.5); WHITE BLOOD COUNT 9.4 X10^3/uL (3.6-10.0)
[2023-05-09] MEDS: FORTAZ or TAZICEF VIAL INJ 1 G in NS 100 ML IV 100 ML IV SCH ×3 (05:31→22:28)
[2023-05-09 05:48] LABS: BURR CELLS PRESENT; HYPOCHROMASIA SLIGHT; MICROCYTOSIS SLIGHT; OVALOCYTES PRESENT; PLATELET MORPHOLOGY COMMENT NORMAL (NORMAL)
[2023-05-09 05:49] LABS: ALANINE AMINOTRANSFERASE 42 Units/L (12-78); ALBUMIN 1.6 g/dL (3.4-5.0); ALKALINE PHOSPHATASE 90 Units/L (46-116); ASPARTATE AMINO TRANSFERASE 28 Units/L (15-37); BLOOD UREA NITROGEN 14 mg/dL (7-18); CALCIUM 7.5 mg/dL (8.5-10.1); CARBON DIOXIDE 25.3 mmol/L (21-32); CHLORIDE 105 mmol/L (98-107); COR CA(FOR HYPOALB) 9.4 mg/dL (8.5-10.1); COR NA(FOR HYPERGLY) 141 mmol/L (136-145); CREATININE 0.77 mg/dL (0.70-1.30); GLUCOSE 145 mg/dL (65-99); POTASSIUM 4.2 mmol/L (3.5-5.1); SODIUM 140 mmol/L (136-145); TOTAL PROTEIN 5.2 g/dL (6.4-8.2); eGFR NON BLACK RACES > 60 (>60)
[2023-05-09] MEDS ORDERED: CONSULT PHARMACY - POTASSIUM & MAGNESIUM XX SCH (07:00)
[2023-05-09] MEDS: MAG-OX TAB PO SCH ×4 (09:08→20:58)
[2023-05-09] MEDS: CIPRO IV 400 MG PREMIX* 400 MG/200 ML IV.SOLN. IV SCH ×2 (09:09→20:48)
[2023-05-09] MEDS: PROTONIX INJ 40 MG VIAL IVP SCH ×2 (09:09→20:51)
[2023-05-09] MEDS: FLOMAX PO SCH (10:52)
--- NOTE | 2023-05-09 11:45 | PCM.PROG ---
Progress Note Progress Note for Day of Date of Exam: 05/09/23 Subjective Subjective: feeling better with mild RT side abdominal pain , no nausea or vomiting .. platelet count is up to 101 , HGB 11.3..WBC 9.4 .. normal LFT .. normal BUN,Creat . non visualized GB on HIDA indicating cholecystitis . Past Medical Family Social History Allergies: Allergies No Known Drug Allergies Allergy (Unknown, Verified 05/04/23 09:47) Onset Date: 09/10/2012 Review of Systems ROS: No change since H&P Vital Signs and I&O's Vital Signs: Vital Signs Temperature 98.3 F Pulse Rate 58 Pulse Rate 62 Respiratory Rate 22 Respiratory Rate 19 Blood Pressure 165/76 Blood Pressure 154/68 O2 Sat by Pulse Oximetry 95 O2 Sat by Pulse Oximetry 94 Intake and Output: Intake & Output 05/06/23 05/07/23 05/08/23 05/09/23 23:59 23:59 23:59 23:59 Intake Total 3151 / 3151 3672 / 3672 3163 / 3163 746 / 746 Output Total 2950 / 2950 2400 / 2400 1974 / 1974 900 / 900 Balance 201 / 201 1272 / 1272 1188 / 1188 -154 / -154 Physical Exam Oriented: Normal, Time, Person and Place Eyes: Normal Ear: Normal Nose: Normal Throat: Normal Respiratory: Normal Cardiovascular: Normal : Normal Auscultation: Bowel Sounds: Normal Tenderness: RUQ Skin: Normal Musculoskeletal: Normal Psychiatric: Normal Mood Description: Calm Affect: Normal Speech Pattern: Clear and Appropriate Laboratory and Diagnostics 05/09/23 04:33 05/09/23 04:33 Labs: 05/04/23 12:35 Blood Blood Culture - Final Escherichia Coli 05/04/23 11:55 Blood Blood Culture - Final Escherichia Coli 05/04/23 11:45 Urine,Catheterized Urine Culture - Final Laboratory WBC 9.4 X10^3/uL (3.6-10.0) 05/09/23 04:33 RBC 4.55 X10^6/uL (4.7-6.0) L 05/09/23 04:33 Hgb 11.3 g/dL (13.5-18.0) L 05/09/23 04:33 Hct 33.7 % (42.0-54.0) L 05/09/23 04:33 MCV 74.2 fL (80.0-100.0) L 05/09/23 04:33 MCH 24.9 pg (27.0-34.0) L 05/09/23 04:33 MCHC 33.6 g/dL (33.0-35.0) 05/09/23 04:33 RDW 14.9 % (11.6-16.5) 05/09/23 04:33 Plt Count 101 X10^3/uL (150.0-450.0) L 05/09/23 04:33 Plt Count Comment Decreased (ADEQUATE) 05/09/23 04:33 MPV 8.4 fL (7.4-11.0) 05/09/23 04:33 Neut % (Auto) 82.6 % (42.0-75.0) H 05/09/23 04:33 Lymph % (Auto) 7.4 % (21.0-51.0) L 05/09/23 04:33 [place] % (Auto) 9.0 % (0.0-13.0) 05/09/23 04:33 Eos % (Auto) 0.9 % (0.9-2.9) 05/09/23 04:33 Baso % (Auto) 0.1 % (0.2-1.0) L 05/09/23 04:33 Neut # (Auto) 7.7 x10^3/uL (2.2-4.8) H 05/09/23 04:33 Lymph # (Auto) 0.7 X10^3/uL (1.3-2.9) L 05/09/23 04:33 [place] # (Auto) 0.8 x10^3/uL (0.3-0.8) 05/09/23 04:33 Eos # (Auto) 0.1 x10^3/uL (0.0-0.2) 05/09/23 04:33 Baso # (Auto) 0.0 X10^3/uL (0.0-0.1) 05/09/23 04:33 Absolute Nucleated RBC 0.0 /100WBC 05/09/23 04:33 Total Counted 100 05/06/23 04:10 Neutrophils % (Manual) 85 % (39-76) H 05/06/23 04:10 Band Neutrophils % 3 % (0-10) 05/06/23 04:10 Lymphocytes % (Manual) 5 % (13-43) L 05/06/23 04:10 Monocytes % (Manual) 7 % (4-9) 05/06/23 04:10 Metamyelocytes % 2 05/04/23 11:55 Toxic Granulation Noted 05/04/23 11:55 Plt Morphology Comment Normal (NORMAL) 05/09/23 04:33 RBC Morphology Abnormal (NORMAL) 05/09/23 04:33 Hypochromasia Slight A 05/09/23 04:33 Microcytosis Slight A 05/09/23 04:33 Ovalocytes Present 05/09/23 04:33 Trevor Cells Present 05/09/23 04:33 PT 14.8 SECONDS (11.8-14.3) 05/07/23 13:25 INR Target Range - 05/07/23 13:25 INR 1.18 (0.8-1.3) 05/07/23 13:25 APTT 30.1 SECONDS (22.9-36.5) 05/07/23 13:25 PTT Comment - 05/07/23 13:25 Fibrinogen 826 mg/dL (239-489) H 05/07/23 13:25 Sample Site Lr 05/06/23 04:39 ABG pH 7.420 (7.35-7.45) 05/06/23 04:39 ABG pCO2 30.0 mmHg (35.0-45.0) L 05/06/23 04:39 ABG pO2 77.0 mmHg (80.0-100.0) L 05/06/23 04:39 ABG HCO3 19.5 mmol/L (22-26) L 05/06/23 04:39 ABG O2 Saturation 95.0 % (90-100) 05/06/23 04:39 ABG Base Excess -4.0 mmol/L (-2.0-2.0) L 05/06/23 04:39 Trevon Test Pos 05/06/23 04:39 A-a Gradient 114.0 mmHg 05/06/23 04:39 FiO2 32.0 05/06/23 04:39 Blood Gas Comments [place] well ae 05/06/23 04:39 Sodium 140 mmol/L (136-145) 05/09/23 04:33 Corrected Sodium 141 mmol/L (136-145) 05/09/23 04:33 Potassium 4.2 mmol/L (3.5-5.1) 05/09/23 04:33 Chloride 105 mmol/L (98-107) 05/09/23 04:33 Carbon Dioxide 25.3 mmol/L (21-32) 05/09/23 04:33 BUN 14 mg/dL (7-18) 05/09/23 04:33 Creatinine 0.77 mg/dL (0.70-1.30) 05/09/23 04:33 Est GFR (MDRD) Af Amer > 60 (>60) 05/09/23 04:33 Est GFR (MDRD) Non-Af > 60 (>60) 05/09/23 04:33 Glucose 145 mg/dL (65-99) H 05/09/23 04:33 POC Glucose (mg/dL) 145 mg/dL (65-99) H 05/09/23 05:16 Lactic Acid 1.9 mmol/L (0.4-2.0) 05/04/23 15:53 Calcium 7.5 mg/dL (8.5-10.1) L 05/09/23 04:33 Corrected Calcium 9.4 mg/dL (8.5-10.1) 05/09/23 04:33 Magnesium 1.6 mg/dL (2.0-2.9) L 05/09/23 04:33 Total Bilirubin 0.40 mg/dL (0.2-1.0) 05/09/23 04:33 AST 28 Units/L (15-37) 05/09/23 04:33 ALT 42 Units/L (12-78) 05/09/23 04:33 Alkaline Phosphatase 90 Units/L (46-116) 05/09/23 04:33 Creatine Kinase 66 Units/L (39-308) 05/04/23 11:55 Troponin I High Sens 39.8 ng/L (4.0-60.0) 05/04/23 11:55 B-Natriuretic Peptide 169 pg/mL (0-79) H 05/06/23 04:10 Total Protein 5.2 g/dL (6.4-8.2) L 05/09/23 04:33 Albumin 1.6 g/dL (3.4-5.0) L 05/09/23 04:33 Globulin 3.6 g/dL (2.5-4.5) 05/09/23 04:33 Albumin/Globulin Ratio 0.4 Ratio (1.1-2.1) L 05/09/23 04:33 Amylase 23 Units/L (25-115) L 05/04/23 11:55 Lipase 77 Units/L (73-393) 05/04/23 11:55 Total PSA 38.28 ng/mL (0.13-4.0) H 05/06/23 04:10 Specimen Type Catherized urine 05/04/23 11:45 Urine Color Yellow (YELLOW) 05/04/23 11:45 Urine Appearance Hazy (CLEAR) 05/04/23 11:45 Urine pH 5.0 (5.0 - 8.0) 05/04/23 11:45 Ur Specific [place] 1.015 (1.000-1.030) 05/04/23 11:45 Urine Protein 2+ (NEGATIVE) 05/04/23 11:45 Urine Glucose (UA) 4+ (NEGATIVE) 05/04/23 11:45 Urine Ketones 1+ (NEGATIVE) 05/04/23 11:45 Urine Blood 5+ (NEGATIVE) 05/04/23 11:45 Urine Nitrite Negative (NEGATIVE) 05/04/23 11:45 Urine Bilirubin Negative (NEGATIVE) 05/04/23 11:45 Urine Urobilinogen Normal (NORMAL) 05/04/23 11:45 Ur Leukocyte Esterase Negative (NEGATIVE) 05/04/23 11:45 Urine RBC 10-20 /HPF (0-3) A 05/04/23 11:45 Urine WBC 0-2 /HPF (0-5) 05/04/23 11:45 Ur Squamous Epith Cells Rare /HPF (NEGATIVE) 05/04/23 11:45 Amorphous Sediment 1+ /HPF (NEGATIVE) 05/04/23 11:45 Urine Bacteria Trace /HPF (NEGATIVE) 05/04/23 11:45 Granular Casts Few /LPF (NEGATIVE) 05/04/23 11:45 Ur Culture Indicated? Yes/culture set up 05/04/23 11:45 SARS-CoV-2 (PCR) Negative (NEGATIVE) 05/04/23 16:22 Influenza Type A (PCR) Negative (NEGATIVE) 05/04/23 16:22 Influenza Type B (PCR) Negative (NEGATIVE) 05/04/23 16:22 RSV (PCR) Negative (NEGATIVE) 05/04/23 16:22 Plan (1) Cholecystitis: Status: Acute Plan: for lap tiana in am (2) Thrombocytopenia: Status: Acute Narrative Support Text: improved , up to 101 .. Plan: IV Protonix 40 mg IV every 12 hours (3) Sepsis: Status: Acute Qualifiers: Acute renal failure type: unspecified Sepsis type: Escherichia coli Severe sepsis acute organ dysfunction type: acute renal failure Severe sepsis shock status: with septic shock Plan: Continue IV Fortaz and ciprofloxacin. (4) Tachycardia: Status: Resolved Plan: IV hydration to help bring her blood pressure. (5) Enlarged prostate: Status: Acute Plan: Check MRI of abdomen pelvis (6) Insulin-requiring or dependent type II diabetes mellitus: Status: Acute Plan: Slight scale regular insulin per protocol. (7) Benign prostatic hyperplasia: Status: None Qualifiers: Lower urinary tract symptom detail: nocturia Plan: Check PSA in the morning. (8) Hypotension: Status: Resolved Qualifiers: Hypotension type: unspecified hypotension type Qualified Code(s): I95.9 - Hypotension, unspecified Plan: Continue Levophed but wean off as tolerated. (9) Acute renal failure: Status: Resolved Qualifiers: Acute renal failure type: unspecified Qualified Code(s): N17.9 - Acute kidney failure, unspecified Plan: IV hydration. (10) Prostate cancer metastatic to bone: Status: Acute Plan: Will need to be followed by urology outpatient.
[2023-05-09] MEDS: NovoLIN R (or HumuLIN R) SUBCUT PRN ×3 (12:26→20:49)
[2023-05-09] MEDS: ALBUMIN HUMAN 25%- 100 ML 100 ML IV SCH (15:43)
[2023-05-09] MEDS: K-DUR TAB 20 MEQ PO SCH (20:50)
[2023-05-09] MEDS: SNACK - Diabetic Appropriate PO SCH (21:04)
[2023-05-09] MEDS: RESTORIL CAP 15 MG PO PRN (21:14)
[2023-05-09] MEDS: ULTRAM PO PRN (21:14)
[2023-05-10 05:09] LABS: BASOPHILS % (AUTO) 0.2 % (0.2-1.0); EOSINOPHILS # (AUTO) 0.2 x10^3/uL (0.0-0.2); EOSINOPHILS % (AUTO) 2.2 % (0.9-2.9); HEMATOCRIT 35.2 % (42.0-54.0); HEMOGLOBIN 11.9 g/dL (13.5-18.0); LYMPHOCYTES # (AUTO) 0.8 X10^3/uL (1.3-2.9); LYMPHOCYTES % (AUTO) 9.4 % (21.0-51.0); MEAN CORPUSCULAR HEMOGLOBIN 25.1 pg (27.0-34.0); MEAN CORPUSCULAR HGB CONC 33.8 g/dL (33.0-35.0); MEAN CORPUSCULAR VOLUME 74.2 fL (80.0-100.0); MEAN PLATELET VOLUME 8.2 fL (7.4-11.0); MONOCYTES # (AUTO) 0.7 x10^3/uL (0.3-0.8); MONOCYTES % (AUTO) 7.9 % (0.0-13.0); NEUTROPHILS % (AUTO) 80.3 % (42.0-75.0); PLATELET COUNT 156 X10^3/uL (150.0-450.0); RED BLOOD COUNT 4.75 X10^6/uL (4.7-6.0); WHITE BLOOD COUNT 8.7 X10^3/uL (3.6-10.0)
[2023-05-10] MEDS: FORTAZ or TAZICEF VIAL INJ 1 G in NS 100 ML IV 100 ML IV SCH ×3 (05:23→22:05)
[2023-05-10] MEDS: NS 1,000 ML IV 1,000 ML IV SCH ×2 (05:28→08:31)
[2023-05-10 05:29] LABS: ALANINE AMINOTRANSFERASE 43 Units/L (12-78); ALBUMIN 2.1 g/dL (3.4-5.0); ALKALINE PHOSPHATASE 94 Units/L (46-116); ASPARTATE AMINO TRANSFERASE 30 Units/L (15-37); BLOOD UREA NITROGEN 11 mg/dL (7-18); CALCIUM 7.8 mg/dL (8.5-10.1); CARBON DIOXIDE 28.3 mmol/L (21-32); CHLORIDE 104 mmol/L (98-107); COR CA(FOR HYPOALB) 9.3 mg/dL (8.5-10.1); COR NA(FOR HYPERGLY) 140 mmol/L (136-145); CREATININE 0.69 mg/dL (0.70-1.30); GLUCOSE 144 mg/dL (65-99); MAGNESIUM 1.7 mg/dL (2.0-2.9); POTASSIUM 3.9 mmol/L (3.5-5.1); SODIUM 139 mmol/L (136-145); TOTAL PROTEIN 5.6 g/dL (6.4-8.2); eGFR NON BLACK RACES > 60 (>60)
[2023-05-10 05:31] LABS: HYPOCHROMASIA SLIGHT; MICROCYTOSIS SLIGHT; PLATELET MORPHOLOGY COMMENT NORMAL (NORMAL)
[2023-05-10 05:32] LABS: BURR CELLS PRESENT; OVALOCYTES PRESENT
[2023-05-10] MEDS: PROTONIX INJ 40 MG VIAL IVP SCH ×2 (08:27→20:04)
[2023-05-10] MEDS: CIPRO IV 400 MG PREMIX* 400 MG/200 ML IV.SOLN. IV SCH ×2 (08:27→20:04)
[2023-05-10] MEDS: FLOMAX PO SCH (08:32)
[2023-05-10] MEDS: MAG-OX TAB PO SCH ×2 (08:32→21:00)
[2023-05-10] MEDS ORDERED: NS 1,000 ML IV 1,000 ML ONE ×2 (08:51→09:08)
[2023-05-10] MEDS ORDERED: VERSED ONE (08:52)
[2023-05-10] MEDS ORDERED: FENTANYL VIAL INJ 250 mcg ONE (08:52)
[2023-05-10] MEDS ORDERED: BRIDION ONE (08:53)
[2023-05-10] MEDS ORDERED: ZEMURON 100 MG VIAL ONE (08:53)
[2023-05-10] MEDS ORDERED: DIPRIVAN VIAL 20 ML ONE (08:53)
[2023-05-10] MEDS ORDERED: QUELICIN (OR ANECTINE) ONE (08:53)
[2023-05-10] MEDS ORDERED: REGLAN INJ 10 MG VIAL IVP PRN (09:04)
[2023-05-10] MEDS ORDERED: DILAUDID INJ IVP PRN (09:04)
[2023-05-10] MEDS ORDERED: BARHEMSYS INJ IVP PRN (09:04)
[2023-05-10] MEDS ORDERED: BENADRYL INJ 50 MG VIAL IVP PRN (09:04)
[2023-05-10] MEDS ORDERED: ZOFRAN INJ 4 MG VIAL IVP PRN (09:04)
[2023-05-10] MEDS ORDERED: ZOFRAN INJ 4 MG VIAL ONE (09:15)
[2023-05-10] MEDS ORDERED: PEPCID 20 MG VIAL ONE (09:15)
[2023-05-10] MEDS ORDERED: TORADOL 30 MG VIAL ONE (10:25)
[2023-05-10] MEDS ORDERED: BACTROBAN TOPICAL OINT ONE (10:39)
[2023-05-10] MEDS ORDERED: BETADINE SOLN ONE (10:52)
[2023-05-10] MEDS: D5 1/2 NS 1,000 ML 1,000 ML IV SCH (11:50)
[2023-05-10] MEDS: ALBUMIN HUMAN 25%- 100 ML 100 ML IV SCH (11:51)
[2023-05-10] MEDS: NovoLIN R (or HumuLIN R) SUBCUT PRN ×2 (11:59→20:11)
[2023-05-10] MEDS: DILAUDID INJ IVP PRN ×3 (12:03→20:05)
[2023-05-10 16:41] LABS: BASOPHILS # (AUTO) 0.1 X10^3/uL (0.0-0.1); BASOPHILS % (AUTO) 0.8 % (0.2-1.0); EOSINOPHILS % (AUTO) 0.2 % (0.9-2.9); HEMATOCRIT 35.9 % (42.0-54.0); HEMOGLOBIN 11.8 g/dL (13.5-18.0); LYMPHOCYTES # (AUTO) 0.3 X10^3/uL (1.3-2.9); LYMPHOCYTES % (AUTO) 2.7 % (21.0-51.0); MEAN CORPUSCULAR HEMOGLOBIN 24.5 pg (27.0-34.0); MEAN CORPUSCULAR HGB CONC 32.8 g/dL (33.0-35.0); MEAN CORPUSCULAR VOLUME 74.6 fL (80.0-100.0); MEAN PLATELET VOLUME 7.6 fL (7.4-11.0); MONOCYTES # (AUTO) 0.4 x10^3/uL (0.3-0.8); MONOCYTES % (AUTO) 3.7 % (0.0-13.0); NEUTROPHILS # (AUTO) 10.9 x10^3/uL (2.2-4.8); NEUTROPHILS % (AUTO) 92.6 % (42.0-75.0); PLATELET COUNT 217 X10^3/uL (150.0-450.0); RED BLOOD COUNT 4.81 X10^6/uL (4.7-6.0); RED CELL DISTRIBUTION WIDTH 15.1 % (11.6-16.5); WHITE BLOOD COUNT 11.8 X10^3/uL (3.6-10.0)
[2023-05-10 16:52] LABS: ALANINE AMINOTRANSFERASE 52 Units/L (12-78); ALBUMIN 2.7 g/dL (3.4-5.0); ALKALINE PHOSPHATASE 96 Units/L (46-116); ASPARTATE AMINO TRANSFERASE 54 Units/L (15-37); BLOOD UREA NITROGEN 12 mg/dL (7-18); CALCIUM 7.9 mg/dL (8.5-10.1); CARBON DIOXIDE 29.1 mmol/L (21-32); CHLORIDE 103 mmol/L (98-107); COR CA(FOR HYPOALB) 8.9 mg/dL (8.5-10.1); COR NA(FOR HYPERGLY) 142 mmol/L (136-145); CREATININE 0.88 mg/dL (0.70-1.30); GLUCOSE 168 mg/dL (65-99); POTASSIUM 4.2 mmol/L (3.5-5.1); SODIUM 140 mmol/L (136-145); eGFR NON BLACK RACES > 60 (>60)
[2023-05-10 17:06] LABS: HYPOCHROMASIA SLIGHT; MICROCYTOSIS SLIGHT; PLATELET MORPHOLOGY COMMENT NORMAL (NORMAL)
[2023-05-10 17:07] LABS: BURR CELLS PRESENT; OVALOCYTES PRESENT
[2023-05-10] MEDS: RESTORIL CAP 15 MG PO PRN (20:06)
[2023-05-10] MEDS: K-DUR TAB 20 MEQ PO SCH (20:06)
[2023-05-10] MEDS: SNACK - Diabetic Appropriate PO SCH (20:11)
[2023-05-10] MEDS ORDERED: PROTONIX INJ 40 MG VIAL IVP SCH (21:00)
[2023-05-11] MEDS: DILAUDID INJ IVP PRN ×4 (03:22→22:20)
[2023-05-11 05:07] LABS: BASOPHILS % (AUTO) 0.1 % (0.2-1.0); EOSINOPHILS # (AUTO) 0.1 x10^3/uL (0.0-0.2); EOSINOPHILS % (AUTO) 0.9 % (0.9-2.9); HEMATOCRIT 28.8 % (42.0-54.0); HEMOGLOBIN 9.9 g/dL (13.5-18.0); LYMPHOCYTES # (AUTO) 0.5 X10^3/uL (1.3-2.9); LYMPHOCYTES % (AUTO) 6.5 % (21.0-51.0); MEAN CORPUSCULAR HEMOGLOBIN 25.6 pg (27.0-34.0); MEAN CORPUSCULAR HGB CONC 34.5 g/dL (33.0-35.0); MEAN CORPUSCULAR VOLUME 74.4 fL (80.0-100.0); MEAN PLATELET VOLUME 7.8 fL (7.4-11.0); MONOCYTES # (AUTO) 0.6 x10^3/uL (0.3-0.8); MONOCYTES % (AUTO) 6.7 % (0.0-13.0); NEUTROPHILS # (AUTO) 7.2 x10^3/uL (2.2-4.8); NEUTROPHILS % (AUTO) 85.8 % (42.0-75.0); PLATELET COUNT 200 X10^3/uL (150.0-450.0); RED BLOOD COUNT 3.88 X10^6/uL (4.7-6.0); RED CELL DISTRIBUTION WIDTH 14.9 % (11.6-16.5); WHITE BLOOD COUNT 8.4 X10^3/uL (3.6-10.0)
[2023-05-11 05:19] LABS: ALANINE AMINOTRANSFERASE 35 Units/L (12-78); ALKALINE PHOSPHATASE 74 Units/L (46-116); ASPARTATE AMINO TRANSFERASE 28 Units/L (15-37); BLOOD UREA NITROGEN 13 mg/dL (7-18); CALCIUM 7.5 mg/dL (8.5-10.1); CHLORIDE 104 mmol/L (98-107); COR CA(FOR HYPOALB) 9.1 mg/dL (8.5-10.1); COR NA(FOR HYPERGLY) 140 mmol/L (136-145); CREATININE 0.74 mg/dL (0.70-1.30); GLUCOSE 195 mg/dL (65-99); POTASSIUM 3.9 mmol/L (3.5-5.1); SODIUM 138 mmol/L (136-145); TOTAL PROTEIN 4.8 g/dL (6.4-8.2); eGFR NON BLACK RACES > 60 (>60)
[2023-05-11 05:27] LABS: HYPOCHROMASIA SLIGHT; MICROCYTOSIS SLIGHT; OVALOCYTES PRESENT; PLATELET MORPHOLOGY COMMENT NORMAL (NORMAL)
[2023-05-11] MEDS: FORTAZ or TAZICEF VIAL INJ 1 G in NS 100 ML IV 100 ML IV SCH ×3 (05:43→22:13)
[2023-05-11] MEDS: D5 1/2 NS 1,000 ML 1,000 ML IV SCH ×4 (05:53→17:10)
[2023-05-11] MEDS: NovoLIN R (or HumuLIN R) SUBCUT PRN (06:00)
[2023-05-11] MEDS: CIPRO IV 400 MG PREMIX* 400 MG/200 ML IV.SOLN. IV SCH ×2 (09:44→20:53)
[2023-05-11] MEDS: PROTONIX INJ 40 MG VIAL IVP SCH ×2 (09:46→20:55)
[2023-05-11] MEDS: FLOMAX PO SCH ×2 (09:46→20:55)
[2023-05-11] MEDS: MAG-OX TAB PO SCH ×2 (09:47→20:55)
[2023-05-11] MEDS: LOVENOX INJ 40 MG SYR SC SCH ×2 (09:50→09:54)
[2023-05-11] MEDS ORDERED: NovoLIN R (or HumuLIN R) SUBCUT PRN (12:50)
[2023-05-11 13:57] VITALS: BMI 31.3
--- NOTE | 2023-05-11 16:36 | PCM.PROG ---
Progress Note Progress Note for Day of Date of Exam: 05/11/23 Subjective Subjective: Patient is feeling much better since his cholecystectomy yesterday. He was found to have a gangrenous gallbladder which was the area that his sepsis came from. His hemoglobin is down some today to 9.9. We will be advancing his diet from clear fluids to a soft diet today see how he does. Pharmacy is continuing to advance his diet and tolerating it hopefully we can let him be discharged home in the next 1 to 2 days. Past Medical Family Social History Allergies: Allergies No Known Drug Allergies Allergy (Unknown, Verified 05/04/23 09:47) Onset Date: 09/10/2012 Review of Systems ROS: No change since H&P Vital Signs and I&O's Vital Signs: Vital Signs Temperature 98.0 F Pulse Rate 72 Pulse Rate 75 Respiratory Rate 22 Respiratory Rate 20 Respiratory Rate 18 Respiratory Rate 24 Blood Pressure 105/56 Blood Pressure 131/64 O2 Sat by Pulse Oximetry 96 O2 Sat by Pulse Oximetry 96 Intake and Output: Intake & Output 05/09/23 05/10/23 05/11/23 05/12/23 11:59 11:59 11:59 11:59 Intake Total 3117 / 3117 4411 / 4411 2128 / 2128 2034 / 2034 Output Total 2275 / 2275 3850 / 3850 2935 / 2935 50 / 50 Balance 842 / 842 561 / 561 -807 / -807 1984 Physical Exam Oriented: Normal, Time, Person and Place Eyes: Normal Ear: Normal Nose: Normal Throat: Normal Respiratory: Normal Cardiovascular: Normal : Normal Auscultation: Bowel Sounds: Normal Tenderness: RUQ Skin: Normal Musculoskeletal: Normal Psychiatric: Normal Mood Description: Calm Affect: Normal Speech Pattern: Clear and Appropriate Laboratory and Diagnostics 05/11/23 04:13 05/11/23 04:13 Labs: 05/04/23 12:35 Blood Blood Culture - Final Escherichia Coli 05/04/23 11:55 Blood Blood Culture - Final Escherichia Coli 05/04/23 11:45 Urine,Catheterized Urine Culture - Final Laboratory WBC 8.4 X10^3/uL (3.6-10.0) 05/11/23 04:13 RBC 3.88 X10^6/uL (4.7-6.0) L 05/11/23 04:13 Hgb 9.9 g/dL (13.5-18.0) L 05/11/23 04:13 Hct 28.8 % (42.0-54.0) L 05/11/23 04:13 MCV 74.4 fL (80.0-100.0) L 05/11/23 04:13 MCH 25.6 pg (27.0-34.0) L 05/11/23 04:13 MCHC 34.5 g/dL (33.0-35.0) 05/11/23 04:13 RDW 14.9 % (11.6-16.5) 05/11/23 04:13 Plt Count 200 X10^3/uL (150.0-450.0) 05/11/23 04:13 Plt Count Comment Adequate (ADEQUATE) 05/11/23 04:13 MPV 7.8 fL (7.4-11.0) 05/11/23 04:13 Neut % (Auto) 85.8 % (42.0-75.0) H 05/11/23 04:13 Lymph % (Auto) 6.5 % (21.0-51.0) L 05/11/23 04:13 [place] % (Auto) 6.7 % (0.0-13.0) 05/11/23 04:13 Eos % (Auto) 0.9 % (0.9-2.9) 05/11/23 04:13 Baso % (Auto) 0.1 % (0.2-1.0) L 05/11/23 04:13 Neut # (Auto) 7.2 x10^3/uL (2.2-4.8) H 05/11/23 04:13 Lymph # (Auto) 0.5 X10^3/uL (1.3-2.9) L 05/11/23 04:13 [place] # (Auto) 0.6 x10^3/uL (0.3-0.8) 05/11/23 04:13 Eos # (Auto) 0.1 x10^3/uL (0.0-0.2) 05/11/23 04:13 Baso # (Auto) 0.0 X10^3/uL (0.0-0.1) 05/11/23 04:13 Absolute Nucleated RBC 0.1 /100WBC 05/11/23 04:13 Total Counted 100 05/10/23 16:30 Neutrophils % (Manual) 91 % (39-76) H 05/10/23 16:30 Band Neutrophils % 3 % (0-10) 05/06/23 04:10 Lymphocytes % (Manual) 4 % (13-43) L 05/10/23 16:30 Monocytes % (Manual) 5 % (4-9) 05/10/23 16:30 Metamyelocytes % 2 05/04/23 11:55 Toxic Granulation Noted 05/04/23 11:55 Plt Morphology Comment Normal (NORMAL) 05/11/23 04:13 RBC Morphology Abnormal (NORMAL) 05/11/23 04:13 Hypochromasia Slight A 05/11/23 04:13 Microcytosis Slight A 05/11/23 04:13 Ovalocytes Present 05/11/23 04:13 Trevor Cells Present 05/10/23 16:30 PT 14.8 SECONDS (11.8-14.3) 05/07/23 13:25 INR Target Range - 05/07/23 13:25 INR 1.18 (0.8-1.3) 05/07/23 13:25 APTT 30.1 SECONDS (22.9-36.5) 05/07/23 13:25 PTT Comment - 05/07/23 13:25 Fibrinogen 826 mg/dL (239-489) H 05/07/23 13:25 Sample Site Lr 05/06/23 04:39 ABG pH 7.420 (7.35-7.45) 05/06/23 04:39 ABG pCO2 30.0 mmHg (35.0-45.0) L 05/06/23 04:39 ABG pO2 77.0 mmHg (80.0-100.0) L 05/06/23 04:39 ABG HCO3 19.5 mmol/L (22-26) L 05/06/23 04:39 ABG O2 Saturation 95.0 % (90-100) 05/06/23 04:39 ABG Base Excess -4.0 mmol/L (-2.0-2.0) L 05/06/23 04:39 Trevon Test Pos 05/06/23 04:39 A-a Gradient 114.0 mmHg 05/06/23 04:39 FiO2 32.0 05/06/23 04:39 Blood Gas Comments [place] well ae 05/06/23 04:39 Sodium 138 mmol/L (136-145) 05/11/23 04:13 Corrected Sodium 140 mmol/L (136-145) 05/11/23 04:13 Potassium 3.9 mmol/L (3.5-5.1) 05/11/23 04:13 Chloride 104 mmol/L (98-107) 05/11/23 04:13 Carbon Dioxide 29.0 mmol/L (21-32) 05/11/23 04:13 BUN 13 mg/dL (7-18) 05/11/23 04:13 Creatinine 0.74 mg/dL (0.70-1.30) 05/11/23 04:13 Est GFR (MDRD) Af Amer > 60 (>60) 05/11/23 04:13 Est GFR (MDRD) Non-Af > 60 (>60) 05/11/23 04:13 Glucose 195 mg/dL (65-99) H 05/11/23 04:13 POC Glucose (mg/dL) 167 mg/dL (65-99) H 05/11/23 15:25 Lactic Acid 1.9 mmol/L (0.4-2.0) 05/04/23 15:53 Calcium 7.5 mg/dL (8.5-10.1) L 05/11/23 04:13 Corrected Calcium 9.1 mg/dL (8.5-10.1) 05/11/23 04:13 Magnesium 1.7 mg/dL (2.0-2.9) L 05/10/23 04:13 Total Bilirubin 0.40 mg/dL (0.2-1.0) 05/11/23 04:13 AST 28 Units/L (15-37) 05/11/23 04:13 ALT 35 Units/L (12-78) 05/11/23 04:13 Alkaline Phosphatase 74 Units/L (46-116) 05/11/23 04:13 Creatine Kinase 66 Units/L (39-308) 05/04/23 11:55 Troponin I High Sens 39.8 ng/L (4.0-60.0) 05/04/23 11:55 B-Natriuretic Peptide 169 pg/mL (0-79) H 05/06/23 04:10 Total Protein 4.8 g/dL (6.4-8.2) L 05/11/23 04:13 Albumin 2.0 g/dL (3.4-5.0) L 05/11/23 04:13 Globulin 2.8 g/dL (2.5-4.5) 05/11/23 04:13 Albumin/Globulin Ratio 0.7 Ratio (1.1-2.1) L 05/11/23 04:13 Amylase 23 Units/L (25-115) L 05/04/23 11:55 Lipase 77 Units/L (73-393) 05/04/23 11:55 Total PSA 38.28 ng/mL (0.13-4.0) H 05/06/23 04:10 Specimen Type Catherized urine 05/04/23 11:45 Urine Color Yellow (YELLOW) 05/04/23 11:45 Urine Appearance Hazy (CLEAR) 05/04/23 11:45 Urine pH 5.0 (5.0 - 8.0) 05/04/23 11:45 Ur Specific [place] 1.015 (1.000-1.030) 05/04/23 11:45 Urine Protein 2+ (NEGATIVE) 05/04/23 11:45 Urine Glucose (UA) 4+ (NEGATIVE) 05/04/23 11:45 Urine Ketones 1+ (NEGATIVE) 05/04/23 11:45 Urine Blood 5+ (NEGATIVE) 05/04/23 11:45 Urine Nitrite Negative (NEGATIVE) 05/04/23 11:45 Urine Bilirubin Negative (NEGATIVE) 05/04/23 11:45 Urine Urobilinogen Normal (NORMAL) 05/04/23 11:45 Ur Leukocyte Esterase Negative (NEGATIVE) 05/04/23 11:45 Urine RBC 10-20 /HPF (0-3) A 05/04/23 11:45 Urine WBC 0-2 /HPF (0-5) 05/04/23 11:45 Ur Squamous Epith Cells Rare /HPF (NEGATIVE) 05/04/23 11:45 Amorphous Sediment 1+ /HPF (NEGATIVE) 05/04/23 11:45 Urine Bacteria Trace /HPF (NEGATIVE) 05/04/23 11:45 Granular Casts Few /LPF (NEGATIVE) 05/04/23 11:45 Ur Culture Indicated? Yes/culture set up 05/04/23 11:45 SARS-CoV-2 (PCR) Negative (NEGATIVE) 05/04/23 16:22 Influenza Type A (PCR) Negative (NEGATIVE) 05/04/23 16:22 Influenza Type B (PCR) Negative (NEGATIVE) 05/04/23 16:22 RSV (PCR) Negative (NEGATIVE) 05/04/23 16:22 Plan (1) Cholecystitis: Status: Acute Plan: Postop day 1 for cholecystectomy. Patient currently doing well. (2) Thrombocytopenia: Status: Acute Plan: IV Protonix 40 mg IV every 12 hours (3) Sepsis: Status: Acute Qualifiers: Acute renal failure type: unspecified Sepsis type: Escherichia coli Severe sepsis acute organ dysfunction type: acute renal failure Severe sepsis shock status: with septic shock Plan: Continue IV Fortaz and ciprofloxacin. (4) Tachycardia: Status: Resolved Plan: IV hydration to help bring her blood pressure. (5) Enlarged prostate: Status: Chronic Plan: Check MRI of abdomen pelvis (6) Insulin-requiring or dependent type II diabetes mellitus: Status: Chronic Plan: Slight scale regular insulin per protocol. (7) Benign prostatic hyperplasia: Status: Chronic Qualifiers: Lower urinary tract symptom detail: nocturia Plan: Check PSA in the morning. (8) Hypotension: Status: Resolved Qualifiers: Hypotension type: unspecified hypotension type Qualified Code(s): I95.9 - Hypotension, unspecified Plan: Continue Levophed but wean off as tolerated. (9) Acute renal failure: Status: Resolved Qualifiers: Acute renal failure type: unspecified Qualified Code(s): N17.9 - Acute kidney failure, unspecified Plan: IV hydration. (10) Prostate cancer metastatic to bone: Status: Acute Plan: Will need to be followed by urology outpatient.
[2023-05-11] MEDS ORDERED: COLACE CAP 100 MG PO ONE (19:02)
[2023-05-11] MEDS: SNACK - Diabetic Appropriate PO SCH (20:33)
[2023-05-11] MEDS: K-DUR TAB 20 MEQ PO SCH (20:54)
[2023-05-11] MEDS: RESTORIL CAP 15 MG PO PRN (20:54)
[2023-05-11] MEDS: MILK OF MAGNESIA PO SCH (20:55)
[2023-05-11] MEDS ORDERED: COLACE CAP 100 MG PO SCH (21:00)
[2023-05-12] MEDS: DILAUDID INJ IVP PRN (03:06)
[2023-05-12] MEDS: FORTAZ or TAZICEF VIAL INJ 1 G in NS 100 ML IV 100 ML IV SCH (05:03)
[2023-05-12] MEDS: D5 1/2 NS 1,000 ML 1,000 ML IV SCH (05:03)
[2023-05-12 05:38] LABS: BASOPHILS % (AUTO) 0.2 % (0.2-1.0); EOSINOPHILS # (AUTO) 0.1 x10^3/uL (0.0-0.2); EOSINOPHILS % (AUTO) 1.7 % (0.9-2.9); HEMATOCRIT 27.8 % (42.0-54.0); HEMOGLOBIN 9.6 g/dL (13.5-18.0); LYMPHOCYTES # (AUTO) 0.6 X10^3/uL (1.3-2.9); LYMPHOCYTES % (AUTO) 7.5 % (21.0-51.0); MEAN CORPUSCULAR HEMOGLOBIN 25.6 pg (27.0-34.0); MEAN CORPUSCULAR HGB CONC 34.4 g/dL (33.0-35.0); MEAN CORPUSCULAR VOLUME 74.5 fL (80.0-100.0); MEAN PLATELET VOLUME 7.6 fL (7.4-11.0); MONOCYTES # (AUTO) 0.7 x10^3/uL (0.3-0.8); MONOCYTES % (AUTO) 8.9 % (0.0-13.0); NEUTROPHILS # (AUTO) 6.8 x10^3/uL (2.2-4.8); NEUTROPHILS % (AUTO) 81.7 % (42.0-75.0); PLATELET COUNT 236 X10^3/uL (150.0-450.0); RED BLOOD COUNT 3.73 X10^6/uL (4.7-6.0); WHITE BLOOD COUNT 8.3 X10^3/uL (3.6-10.0)
[2023-05-12 05:51] LABS: ALANINE AMINOTRANSFERASE 36 Units/L (12-78); ALBUMIN 1.7 g/dL (3.4-5.0); ALKALINE PHOSPHATASE 92 Units/L (46-116); ASPARTATE AMINO TRANSFERASE 30 Units/L (15-37); BLOOD UREA NITROGEN 11 mg/dL (7-18); CALCIUM 7.3 mg/dL (8.5-10.1); CARBON DIOXIDE 27.5 mmol/L (21-32); CHLORIDE 101 mmol/L (98-107); COR CA(FOR HYPOALB) 9.1 mg/dL (8.5-10.1); COR NA(FOR HYPERGLY) 137 mmol/L (136-145); CREATININE 0.71 mg/dL (0.70-1.30); GLUCOSE 193 mg/dL (65-99); MAGNESIUM 1.8 mg/dL (2.0-2.9); POTASSIUM 3.7 mmol/L (3.5-5.1); SODIUM 135 mmol/L (136-145); TOTAL PROTEIN 4.8 g/dL (6.4-8.2); eGFR NON BLACK RACES > 60 (>60)
[2023-05-12 05:53] LABS: HYPOCHROMASIA SLIGHT; MICROCYTOSIS SLIGHT; OVALOCYTES PRESENT; PLATELET MORPHOLOGY COMMENT NORMAL (NORMAL)
[2023-05-12] MEDS ORDERED: CONSULT PHARMACY - POTASSIUM & MAGNESIUM XX SCH (07:00)
[2023-05-12] MEDS: PROTONIX INJ 40 MG VIAL IVP SCH (08:16)
[2023-05-12] MEDS: CIPRO IV 400 MG PREMIX* 400 MG/200 ML IV.SOLN. IV SCH (08:17)
[2023-05-12] MEDS: FLOMAX PO SCH (08:17)
[2023-05-12] MEDS: MILK OF MAGNESIA PO SCH (08:17)
[2023-05-12] MEDS: MAG-OX TAB PO SCH (08:18)
[2023-05-12] MEDS: LOVENOX INJ 40 MG SYR SC SCH (08:18)
[2023-05-12 08:40] VITALS: BP 134/61; PULSE 82; RESP 24; TEMP 98; O2SAT 97
[2023-05-12] MEDS ORDERED: D5 1/2 NS + KCL 20 MEQ/L 1,000 ML IV SCH (09:00)
[2023-05-12] MEDS ORDERED: K-DUR TAB 20 MEQ PO ONE (09:00)
[2023-05-12] MEDS ORDERED: MAG-OX TAB PO SCH (10:00)
[2023-05-12] MEDS ORDERED: DULCOLAX SUPPOSITORY 10 MG RECTAL ONE (11:26)
== END 2023-05-12 12:00 | disposition home health service (06) | DRG 871 ==
LOC: ER 11:14 → ICU 16:37
PROVIDERS: ADMIT Family Medicine; ATTEND Family Medicine
DX: N40.1 Benign prostatic hyperplasia with lower urinary tract symptoms; R10.84 Generalized abdominal pain; Z79.4 Long term (current) use of insulin; R00.0 Tachycardia, unspecified; R65.21 Severe sepsis with septic shock; E78.2 Mixed hyperlipidemia; C79.51 Secondary malignant neoplasm of bone; K80.00 Calculus of gallbladder with acute cholecystitis without obstruction; I95.89 Other hypotension; R06.02 Shortness of breath; Z20.822 Contact with and (suspected) exposure to COVID-19; K82.A1 Gangrene of gallbladder in cholecystitis; K21.9 Gastro-esophageal reflux disease without esophagitis; N17.8 Other acute kidney failure; C61 Malignant neoplasm of prostate; K66.0 Peritoneal adhesions (postprocedural) (postinfection); A41.51 Sepsis due to Escherichia coli [E. coli]; R35.0 Frequency of micturition; R10.11 Right upper quadrant pain; R26.89 Other abnormalities of gait and mobility; R79.1 Abnormal coagulation profile; E11.65 Type 2 diabetes mellitus with hyperglycemia